=== PATIENT | male | born 1960 | race African-American/Black ===

== ENCOUNTER 2023-04-14 10:34 | Emergency (ER) | payer OTHER, SELFPAY ==
--- NOTE | ~2023-04-14 | XR_ITS ---
EXAMINATION: XR hip LT min 3V w AP pelvis DATE: 04/14/2023 11:33 INDICATION: Left hip pain. TECHNIQUE: An anteroposterior view of the pelvis and 3 views of left hip were obtained. COMPARISON: None. FINDINGS: There is lumbar levoscoliosis and severe spondylosis. No fracture. There is moderate right hip osteoarthritis. There is advanced left hip osteoarthritis with bone volume loss of the acetabulum and femoral head. IMPRESSION: 1. Advanced left hip osteoarthritis. 2. Moderate right hip osteoarthritis. Reviewed, dictated and finalized at location A. [employer]
[2023-04-14 10:47] VITALS: BP 135/81; PULSE 95; RESP 20; TEMP 36.4; O2SAT 99
[2023-04-14 11:17] VITALS: BP 120/82; PULSE 85; RESP 17; TEMP 36.5; O2SAT 97
--- NOTE | 2023-04-14 13:05 | ED.LOWEXIN ---
HPI - Extremity Injury (Lower) General Chief Complaint: Extremity Injury, Lower Stated Complaint: hip pain Time Seen by Provider: 04/14/23 12:06 History of Present Illness HPI Narrative: Patient is a 62-year-old male presenting with hip pain. Patient states that he has chronic bilateral hip pain that was so bad today that he was struggling to walk with his walker. He went to his group therapy session at [facility] and they told him to come in for evaluation because his pain was so severe. He denies new injuries, numbness or weakness, fevers or chills. No further complaints. States that he takes Tylenol and naproxen with decent pain control. Related Data Allergies Allergy/AdvReac Type Severity Reaction Status Date / Time No Known Allergies Allergy Verified 04/14/23 11:19 Review of Systems Review of Systems: All systems reviewed & are unremarkable except as noted in HPI and below Exam Narrative: GENERAL: Well-appearing, In no acute distress, pleasant cooperative HEAD: Normocephalic, atraumatic. EYES: PERRLA and EOMI. ENT: . Mucous membranes moist. NECK: Supple. CHEST: No respiratory distress. HEART: Regular rate and rhythm EXTREMITIES: Normal range of motion. No edema. no tenderness of hips, no skin changes, distal pulses 2+ SKIN: Warm, dry, no rash. NEURO: Alert and oriented x3. PSYCH: Normal mood and affect. Course Vital Signs Vital signs: Vital Signs Temperature 97.6 F 04/14/23 10:47 Pulse Rate 95 04/14/23 10:47 Respiratory Rate 20 04/14/23 10:47 Blood Pressure 135/81 04/14/23 10:47 Pulse Oximetry 99 04/14/23 10:47 Oxygen Delivery Room Air 04/14/23 10:47 Temperature 97.7 F 04/14/23 11:17 Pulse Rate 85 04/14/23 11:17 Respiratory Rate 17 04/14/23 11:17 Blood Pressure 120/82 04/14/23 11:17 Pulse Oximetry 97 04/14/23 11:17 Oxygen Delivery Room Air 04/14/23 10:47 MDM - Extremity Injury (Lower) MDM Narrative Medical decision making narrative: 62-year-old male presenting with hip pain. Vitals are stable. Exam remarkable for the above. X-ray reveals severe bilateral osteoarthritis. Patient has been taking Tylenol and naproxen with decent pain relief. States that he has seen an orthopedic physician who advised that he have a hip replacement once he stops smoking. He denies any new trauma. No numbness or weakness. Will treat with IM Toradol and a 1 time dose of Vicodin. Advised that he continue to use Tylenol and naproxen. Advised that he follow-up closely with orthopedic surgery. Appropriate return precautions given. Discharged in stable condition. Differential Diagnosis Differential diagnosis: Likely other ( Hip pain, arthritis) Medical Records Attestation: I reviewed the patient's medical records. Imaging Data Radiologist's impression: ITS Impressions Hip/Pelvis X-Ray 04/14/23 11:44 IMPRESSION: 1. Advanced left hip osteoarthritis. 2. Moderate right hip osteoarthritis. Critical Care Time Critical Care Time Critical Care Time: No Discharge Plan Discharge Clinical Impression: Hip osteoarthritis Patient Disposition: Home, Self-Care Condition: Stable Instructions: Antibiotic Form, Osteoarthritis (DC) Additional Instructions: The x-ray today shows arthritis in both of your hip joints. Please continue using Tylenol and naproxen for pain control. Please follow-up closely with orthopedic surgery. Prescriptions: New diclofenac sodium [Voltaren Arthritis Pain] 1 % gel 4 g topical QID Qty: 100 0RF Rx Instructions: apply to single knee, ankle, foot; for foot includes sole/toes/top of foot Follow-up/Referrals: Toni,Ok Dumont MD [Primary Care Provider] - Aki Blackwood MD [Physician] - Stand Alone Forms: Work/School Release IP
[2023-04-14] MEDS: KETOROLAC 30 MG/ML VIAL (*BKC) IM (13:23)
[2023-04-14] MEDS: HYDROcodone/acetaminophen (*CRX) 5-325 MG TABLET 1 TAB PO (13:24)
== END 2023-04-14 13:20 | disposition home or self-care (01) ==
PROVIDERS: Emergency Provider Emergency Medicine; PCP Internal Medicine
DX: M16.0 Bilateral primary osteoarthritis of hip (principal)
CPT/HCPCS: 73502; 96372; 99283; A9270; J1885

== ENCOUNTER 2025-01-07 22:12 | Inpatient (IN) | payer OTHER, SELFPAY ==
--- NOTE | ~2025-01-07 | CT_ITS ---
CTA CHEST CLINICAL HISTORY: sob, cp, +dimer . COMPARISON: Chest x-ray today TECHNIQUE: Helical CTA performed from thoracic inlet to upper abdomen 100 mL IV contrast Coronal, sagittal reformats. Multiplanar MIPS CT images acquired with automatic exposure control for dose reduction DLP: 269 mGy-cm FINDINGS: Pulmonary arteries: No PE. Thoracic Aorta: No dissection or aneurysm. Heart/pericardium: Unremarkable. RV/LV ratio: Normal. Lungs/Pleura: Tiny atelectasis and/or pneumonitis right upper lobe near fissure. Tracheobronchial tree: Patent. Nodes: No enlarged nodes. Bones: No acute bony abnormality. Soft tissues: Unremarkable. Visualized upper abdomen: Hepatomegaly, likely steatosis. IMPRESSION: 1. No PE or other acute cardiopulmonary findings. Reviewed, dictated and finalized at location R.
--- NOTE | ~2025-01-07 | US_ITS ---
BILATERAL LOWER EXTREMITY VENOUS DUPLEX Clinical History: pain in legs, swelling RLE . Comparison: None. Technique: Grayscale, color, duplex/spectral Doppler sonography bilateral lower extremities. Findings: Bilateral common femoral, femoral, popliteal, and calf veins compressible and color Doppler patent. Normal augmentation with distal compression. No internal echoes. IMPRESSION: 1. No DVT either leg. Reviewed, dictated and finalized at location R. IMPRESSION: 1. No DVT either leg.
--- NOTE | ~2025-01-07 | CT_ITS ---
CT HEAD NON-CONTRAST Clinical History: dizziness Comparison: None Technique: Unenhanced axial images skull base to vertex Coronal, sagittal reformats CT images acquired with automatic exposure control for dose reduction DLP: 681 mGy-cm Findings: Global atrophy. Sulci, ventricles: Unremarkable. No intracerebral hemorrhage. No evidence acute territorial infarct. No mass effect, midline shift. Bony calvarium intact. Visualized paranasal sinuses: Clear. Mastoid air cells: Clear. IMPRESSION: 1. No acute intracranial findings. Reviewed, dictated and finalized at location R.
--- NOTE | ~2025-01-07 | XR_ITS ---
Examination: XR chest 1V portable Clinical History: soB CHEST PAIN Comparison: None Technique: Portable AP Findings: Heart size normal. Lungs clear. No acute bony abnormality. IMPRESSION: 1. No acute cardiopulmonary findings given portable technique. Reviewed, dictated and finalized at location R.
[2025-01-07 22:07] VITALS: BP 109/78; PULSE 83; RESP 17; TEMP 36.6; O2SAT 99
--- NOTE | 2025-01-07 22:16 | ECG_ITS ---
Test Date: 2025-01-07 22:19:08 Measurements Intervals [place] Rate: 83 P: 70 [place]: 138 QRS: 29 QRSD: 106 T: -62 QT: 362 QTc: 427 Interpretive Statements SINUS RHYTHM NONSPECIFIC ST-T WAVE ABNORMALITY- DIFFUSE LEADS BASELINE ARTIFACT- I, II, III, AVR, AVL, AVF, V3-V4 BORDERLINE ECG No previous ECG available for comparison Electronically Signed On 01-08-2025 08:16:48 CDT by Juan Brady D.O.
[2025-01-07] MEDS: ASPIRIN 81 MG CHEWABLE TABLET 324 MG PO (22:28)
[2025-01-07 22:31] LABS: Hematocrit 34.6 % (42.0-52.0); Hemoglobin 11.8 g/dL (14.0-18.0); Immature Granulocyte Percent A 0.3 % (0-0.5); Lymphocytes Absolute Auto 1.70 K/mm3 (0.9-3.2); Mean Corpuscular HGB Conc 34.1 g/dl (32-36); Mean Corpuscular Hemoglobin 30.5 pg (26-34); Mean Corpuscular Volume 89.4 fl (80-100); Nucleated Red Blood Cells Absolute Auto 0.000 K/mm3 (0.0-0.012); Nucleated Red Blood Cells Perc 0.0 % (0.0-0.2); Platelet Count Result 221 k/mm3 (150-375); Red Blood Count 3.87 M/mm3 (4.6-6.20); White Blood Count 7.3 K/mm3 (4.5-10.0)
[2025-01-07 22:41] LABS: Alanine Aminotransferase 35 U/L (6-50); Albumin Level 3.9 g/dL (3.5-5.1); Alkaline Phosphatase 112 U/L (38-126); Anion Gap 4 mmol/L (4-12); Aspartate Amino Transferase 61 U/L (17-59); Bilirubin,Total 1.0 mg/dL (0.2-1.3); Blood Urea Nitrogen 20 mg/dL (9-20); Calcium 8.6 mg/dL (8.4-10.2); Carbon Dioxide 27 mmol/L (22-30); Chloride 103 mmol/L (98-107); Estimated CRCL calculation 58 ml/min; Estimated Glomerular Filt Rate > 60; Glucose 173 mg/dL (65-110); Lipase 173 U/L (23-300); Potassium 3.6 mmol/L (3.4-5.0); Sodium 134 mmol/L (137-145); Total Protein 6.5 g/dL (6.3-8.2)
[2025-01-07 22:45] LABS: INR 0.9; Prothrombin Time 12.1 Seconds (11.1-14.7)
[2025-01-07 22:46] LABS: Partial Thromboplastin Time 28.7 Seconds (22.3-36.8)
[2025-01-07 22:53] LABS: Troponin I 0.014 ng/mL (0.000-0.034)
[2025-01-07 23:45] LABS: Creatine Kinase 1462 U/L (55-170); Magnesium 2.5 mg/dL (1.6-2.3)
[2025-01-07] MEDS: ONDANSETRON INJ 4 MG/2 ML VIAL IV PUSH (23:46)
[2025-01-07 23:55] LABS: NT Pro B Type Natriuretic Pept 167 pg/mL (19.9-100)
[2025-01-08] VITALS (9 sets, daily range): BP systolic 100–114; BP diastolic 57–79; PULSE 69–84; RESP 16–20; TEMP 36.3–36.4; O2SAT 98–100; BMI 26.9
--- NOTE | 2025-01-08 00:05 | ED.CHESTPAIN ---
HPI - Chest Pain General Chief Complaint: Chest Pain <RATNA Cheema Last Filed: 01/08/25 01:50> Stated Complaint: CP, SOB, LOW O2, BLE EDEMA, DIZZINESS <RATNA Cheema Last Filed: 01/08/25 01:50> Time Seen by Provider: 01/07/25 23:05 <RATNA Cheema Last Filed: 01/08/25 01:50> Source: patient and old records reviewed <RATNA Cheema Last Filed: 01/08/25 01:50> Mode of arrival: EMS <RATNA Cheema Last Filed: 01/08/25 01:50> Limitations: no limitations <RATNA Cheema Last Filed: 01/08/25 01:50> History of Present Illness HPI narrative: Patient is a 64-year-old male, with PMH of bipolar disorder, tardive dyskinesia, who presents the ED via EMS with multiple complaints. Per EMS report, patient was [place] local [place] with report of chest pain, shortness breath, dizziness, nausea, vomiting. He states the symptoms started today. Patient was noted to be hypoxic for EMS down to 86% on room air. Was placed on supplemental oxygen. Patient also reports having swelling throughout his right lower extremity for the past several months. Also complains of diffuse muscle pain/generalized pain, most notably in his lower extremities/thighs. States this has been intermittent since 2020, but reports he has been walking the last few days and his sx's have worsened. Has not taken anything for pain. Denies fall or injury. Denies cough or cold symptoms. <RATNA Cheema Last Filed: 01/08/25 01:50> Related Data Home Medications: Home Medications ?Medication ?Instructions ?Recorded ?Confirmed ?Last Taken ?Type amlodipine 5 mg tablet 5 mg PO DAILY 01/08/25 01/08/25 Unknown History bupropion HCl 300 mg 24 hr tablet, 300 mg PO DAILY 01/08/25 01/08/25 Unknown History extended release cyclobenzaprine 10 mg tablet 10 mg PO DAILY 01/08/25 01/08/25 Unknown History divalproex 250 mg tablet,delayed 250 mg PO DAILY 01/08/25 01/08/25 Unknown History release divalproex 500 mg tablet,delayed 500 mg PO DAILY 01/08/25 01/08/25 Unknown History release duloxetine 30 mg capsule,delayed 30 mg PO DAILY 01/08/25 01/08/25 Unknown History release gabapentin 300 mg capsule 300 mg PO Q8H 01/08/25 01/08/25 Unknown History hydrochlorothiazide 12.5 mg tablet 12.5 mg PO DAILY 01/08/25 01/08/25 Unknown History hydroxyzine HCl 25 mg tablet 25 mg PO BID 01/08/25 01/08/25 Unknown History lurasidone 40 mg tablet 40 mg PO DAILY 01/08/25 01/08/25 Unknown History meloxicam 15 mg tablet 15 mg PO DAILY 01/08/25 01/08/25 Unknown History tamsulosin 0.4 mg capsule 0.4 mg PO HS 01/08/25 01/08/25 Unknown History trazodone 50 mg tablet 50 mg PO HS 01/08/25 01/08/25 Unknown History <Kiley Elizabeth PA-C - Last Filed: 01/08/25 01:50> Allergies/Adverse Reactions: Allergies Allergy/AdvReac Type Severity Reaction Status Date / Time No Known Allergies Allergy Verified 01/08/25 11:40 <Kiley Elizabeth PA-C - Last Filed: 01/08/25 01:50> Review of Systems Review of Systems: All systems reviewed & are unremarkable except as noted in HPI. <Kiley Elizabeth PA-C - Last Filed: 01/08/25 01:50> All systems reviewed & are unremarkable except as noted in HPI and below <Kiley Elizabeth PA-C - Last Filed: 01/08/25 01:50> [facility] Past Medical History Medical History: Medical History (Updated 01/09/25 @ 15:53 by Martine Lake PA-C) Tobacco abuse Depression Osteoarthritis Tardive dyskinesia <iKley Elizabeth PA-C - Last Filed: 01/08/25 01:50> Surgical History Surgical History: Surgical History (Updated 01/08/25 @ 06:12 by Sheeba Ragland APRN) History of back surgery H/O left knee surgery <Kiley Elizabeth PA-C - Last Filed: 01/08/25 01:50> Family History Family History: Family History (Updated 01/08/25 @ 05:57 by Sheeba Ragland APRN) Other Family history unknown <Kiley Elizabeth PA-C - Last Filed: 01/08/25 01:50> Social History Social History: Social History (Updated 01/08/25 @ 06:12 by Sheeba Ragland APRN) Social History: According to his face sheet he is and lives in [facility]. He is unemployed. He has a friend and sibling listed as his contact people. From previous records he has stayed at [facility]. From previous records he had been a smoker. Code status full code Smoking packs per day: 0.5 Smoking cigarettes per day: 10.0 Years smoked: 50 Smoking pack-years: 25.00 Smoking status: Current every day smoker Tobacco type: cigarettes Alcohol intake: current Drinks per week: 14 Substance use: current Substance use type: marijuana and crack/cocaine Lack of Transportation: YES Lack of Food: Often True Current Housing: I Do Not Have Housing Concerned About Future Housing: No Difficulty Paying Gas/Electric Bills: No Difficulty Paying for Meds: No Currently Unemployed: No Education: Bachelor's Degree Difficulty w/ Childcare or Family Care: No Spiritual care concerns: No <Kiley Elizabeth PA-C - Last Filed: 01/08/25 01:50> Exam Narrative: GENERAL: Well appearing, well-nourished, non-toxic, in no acute distress. HEAD: Normocephalic, atraumatic. RESPIRATORY: Airway patent, respirations nonlabored. Occasional expiratory wheezing, no significant rhonchi. Otherwise clear to auscultation. CARDIOVASCULAR: Regular rate and rhythm without murmurs, rubs, or gallops. ABDOMINAL: Soft, nontender, nondistended. Normoactive BS. MUSCULOSKELETAL: Moves all extremities. No gross deformities. Frequent spasming of arms and legs. SKIN: Warm, dry, normal color. NEURO: A&O X3. Speech clear. Cranial nerves II-XII grossly intact. Steady gait. No ataxic movements. PSYCHIATRIC: Somewhat rapid/pressured speech. Normal interaction. Tardive dyskinesia of mouth <Kiley Elizabeth PA-C - Last Filed: 01/08/25 01:50> Course [facility]/PA Physician Supervision PA consulted / informed me this patient was being admitted for elevated CPK. Reviewed renal function. I did not personally examine them however. <Anne Schultz MD - Last Filed: 01/09/25 19:28> Vital Signs Vital signs: Vital Signs Temperature 97.8 F 01/07/25 22:07 Pulse Rate 83 01/07/25 22:07 Respiratory Rate 17 01/07/25 22:07 Blood Pressure 109/78 01/07/25 22:07 Pulse Oximetry 99 01/07/25 22:07 Oxygen Delivery Room Air 01/07/25 22:07 Temperature 99.2 F 01/09/25 14:00 Pulse Rate 78 01/09/25 16:00 Respiratory Rate 18 01/09/25 14:00 Blood Pressure 148/89 H 01/09/25 14:00 Pulse Oximetry 100 01/09/25 14:00 Oxygen Delivery Room Air 01/09/25 08:50 <Kiley Elizabeth PA-C - Last Filed: 01/08/25 01:50> Vital Signs Temperature 97.8 F 01/07/25 22:07 Pulse Rate 83 01/07/25 22:07 Respiratory Rate 17 01/07/25 22:07 Blood Pressure 109/78 01/07/25 22:07 Pulse Oximetry 99 01/07/25 22:07 Oxygen Delivery Room Air 01/07/25 22:07 Temperature 99.2 F 01/09/25 14:00 Pulse Rate 78 01/09/25 16:00 Respiratory Rate 18 01/09/25 14:00 Blood Pressure 148/89 H 01/09/25 14:00 Pulse Oximetry 100 01/09/25 14:00 Oxygen Delivery Room Air 01/09/25 08:50 <Anne Schultz MD - Last Filed: 01/09/25 19:28> MDM - Chest Pain MDM Narrative Medical decision making narrative: Patient presented to ED with multiple complaints, chest pain, shortness breath, dizziness, nausea, vomiting, muscle pain. Vital signs are stable upon arrival. Patient was reported to be hypoxic by EMS down to 86%. Required supplemental oxygen for EMS. Patient has been stable on room air here. Not currently requiring supplemental oxygen. In no acute respiratory distress. EKG was sinus rhythm, does show nonspecific T-wave inversions scattered throughout. Baseline troponin 0.014. Will continue to trend. BNP only 167. Patient does have some swelling throughout right lower extremity, but otherwise does not appear markedly fluid overloaded. D-dimer was elevated to 0.69. CTA of chest was obtained and without evidence of PE, pneumonia, pulmonary edema. Remainder of laboratory studies without leukocytosis. Mild anemia noted with hemoglobin of 11.8, no records to compare to. Electrolytes are stable. Creatinine 1.14. Blood glucose 173. Mag within normal range. CK was notably elevated to 1462. ETOH negative. Viral swabs negative. UA/UDS ordered/pending. CT brain was without acute findings. Patient given 2 L of fluid in the ED. Will be admitted for further evaluation and continued aggressive fluid hydration. Discussed case with Sheeba Ragland [employer] hospitalist, accepted patient for admission. Patient in agreement with plan. <Kiley Elizabeth PA-C - Last Filed: 01/08/25 01:50> Medical Records Data Attestation: I reviewed the patient's medical records. <Kiley Elizabeth PA-C - Last Filed: 01/08/25 01:50> Lab Data Attestation: I reviewed the patient's lab results. <Kiley Elizabeth PA-C - Last Filed: 01/08/25 01:50> Result diagrams: 01/09/25 09:27 01/09/25 09:27 <RATNA Cheema Last Filed: 01/08/25 01:50> Labs: Lab Results 01/07/25 01/07/25 01/07/25 Range/Units 22:24 22:24 22:25 WBC 7.3 (4.5-10.0) K/mm3 RBC 3.87 L (4.6-6.20) M/mm3 Hgb 11.8 L (14.0-18.0) g/dL Hct 34.6 L (42.0-52.0) % MCV 89.4 (80-100) fl MCH 30.5 (26-34) pg MCHC 34.1 (32-36) g/dl RDW 15.0 H (11.5-14.5) % Plt Count 221 (150-375) k/mm3 MPV 9.7 (7.4-10.4) fl Immature Gran % (Auto) 0.3 (0-0.5) % Neut % (Auto) 63.2 (45.5-73.1) % Lymph % (Auto) 23.4 (18.3-44.2) % [place] % (Auto) 8.7 H (2.6-8.5) % Eos % (Auto) 3.7 (0-4.4) % Baso % (Auto) 0.7 (0.2-1.2) % Lymph # (Auto) 1.70 (0.9-3.2) K/mm3 [place] # (Auto) 0.6 (0.1-0.6) K/mm3 Eos # (Auto) 0.3 (0-0.3) K/mm3 Baso # (Auto) 0.1 (0.0-0.1) K/mm3 Abs Immat Gran (auto) 0.02 (0.00-0.031) K/mm3 Absolute Neuts (auto) 4.6 (1.3-6.7) K/mm3 Absolute Nucleated RBC 0.000 (0.0-0.012) K/mm3 Nucleated RBC % 0.0 (0.0-0.2) % PT 12.1 (11.1-14.7) Seconds INR 0.9 APTT 28.7 (22.3-36.8) Seconds D-Dimer 0.69 H (<0.48) ug/mL Sodium 134 L (137-145) mmol/L Potassium 3.6 (3.4-5.0) mmol/L Chloride 103 (98-107) mmol/L Carbon Dioxide 27 (22-30) mmol/L Anion Gap 4 (4-12) mmol/L BUN 20 (9-20) mg/dL Creatinine 1.14 (0.7-1.3) mg/dL Estim Creat Clear Calc 58 ml/min Estimated GFR > 60 (59 - ) Glucose 173 H (65-110) mg/dL POC Capillary Glucose (65-105) mg/dl Calcium 8.6 (8.4-10.2) mg/dL Magnesium 2.5 H (1.6-2.3) mg/dL Total Bilirubin 1.0 (0.2-1.3) mg/dL AST 61 H (17-59) U/L ALT 35 (6-50) U/L Alkaline Phosphatase 112 (38-126) U/L Total Creatine Kinase 1462 H (55-170) U/L Troponin I 0.014 (0.000-0.034) ng/mL NT-Pro-B Natriuret Pep 167 H Cancelled (19.9-100) pg/mL Total Protein 6.5 (6.3-8.2) g/dL Albumin 3.9 (3.5-5.1) g/dL Lipase 173 (23-300) U/L Urine Color (Yellow) Urine Appearance (Clear) Urine pH (5.0-9.0) Ur Specific [place] (1.001-1.035) Urine Protein (Negative) mg/dL Urine Glucose (UA) (Negative) mg/dL Urine Ketones (Negative) mg/dL Ur Blood (Man) (Negative) Urine Nitrate (Negative) Urine Bilirubin (Negative) Urine Urobilinogen (<2.0) mg/dL Leukocyte Esterase Rfl (Negative) DEDRICK/UL Urine RBC (0-2) /hpf Urine WBC (0-3) /hpf Ur Squamous Epith Cells (Few) /hpf Urine Bacteria /hpf Urine Casts Urine Myoglobin Urine Opiates Screen (Negative) Urine Methadone Screen (Negative) Ur Barbiturates Screen (Negative) Ur Phencyclidine Scrn (Negative) Ur Amphetamine Screen (Negative) U Benzodiazepines Scrn (Negative) Urine Cocaine Screen (Negative) U Cannabinoids Screen (Negative) Ethyl Alcohol (<10) mg/dL Influenza A (RT-PCR) (Negative) Influenza B (RT-PCR) (Negative) RSV (RT-PCR) (Negative) SARS-CoV-2 RNA (RT-PCR) (Negative) 01/08/25 01/08/25 01/08/25 Range/Units 00:12 01:30 01:40 WBC (4.5-10.0) K/mm3 RBC (4.6-6.20) M/mm3 Hgb (14.0-18.0) g/dL Hct (42.0-52.0) % MCV (80-100) fl MCH (26-34) pg MCHC (32-36) g/dl RDW (11.5-14.5) % Plt Count (150-375) k/mm3 MPV (7.4-10.4) fl Immature Gran % (Auto) (0-0.5) % Neut % (Auto) (45.5-73.1) % Lymph % (Auto) (18.3-44.2) % [place] % (Auto) (2.6-8.5) % Eos % (Auto) (0-4.4) % Baso % (Auto) (0.2-1.2) % Lymph # (Auto) (0.9-3.2) K/mm3 [place] # (Auto) (0.1-0.6) K/mm3 Eos # (Auto) (0-0.3) K/mm3 Baso # (Auto) (0.0-0.1) K/mm3 Abs Immat Gran (auto) (0.00-0.031) K/mm3 Absolute Neuts (auto) (1.3-6.7) K/mm3 Absolute Nucleated RBC (0.0-0.012) K/mm3 Nucleated RBC % (0.0-0.2) % PT (11.1-14.7) Seconds INR APTT (22.3-36.8) Seconds D-Dimer (<0.48) ug/mL Sodium (137-145) mmol/L Potassium (3.4-5.0) mmol/L Chloride (98-107) mmol/L Carbon Dioxide (22-30) mmol/L Anion Gap (4-12) mmol/L BUN (9-20) mg/dL Creatinine (0.7-1.3) mg/dL Estim Creat Clear Calc ml/min Estimated GFR (59 - ) Glucose (65-110) mg/dL POC Capillary Glucose (65-105) mg/dl Calcium (8.4-10.2) mg/dL Magnesium (1.6-2.3) mg/dL Total Bilirubin (0.2-1.3) mg/dL AST (17-59) U/L ALT (6-50) U/L Alkaline Phosphatase (38-126) U/L Total Creatine Kinase (55-170) U/L Troponin I 0.014 (0.000-0.034) ng/mL NT-Pro-B Natriuret Pep (19.9-100) pg/mL Total Protein (6.3-8.2) g/dL Albumin (3.5-5.1) g/dL Lipase (23-300) U/L Urine Color (Yellow) Urine Appearance (Clear) Urine pH (5.0-9.0) Ur Specific [place] (1.001-1.035) Urine Protein (Negative) mg/dL Urine Glucose (UA) (Negative) mg/dL Urine Ketones (Negative) mg/dL Ur Blood (Man) (Negative) Urine Nitrate (Negative) Urine Bilirubin (Negative) Urine Urobilinogen (<2.0) mg/dL Leukocyte Esterase Rfl (Negative) DEDRICK/UL Urine RBC (0-2) /hpf Urine WBC (0-3) /hpf Ur Squamous Epith Cells (Few) /hpf Urine Bacteria /hpf Urine Casts Urine Myoglobin Urine Opiates Screen Negative (Negative) Urine Methadone Screen Negative (Negative) Ur Barbiturates Screen Negative (Negative) Ur Phencyclidine Scrn Negative (Negative) Ur Amphetamine Screen Positive A (Negative) U Benzodiazepines Scrn Negative (Negative) Urine Cocaine Screen Positive A (Negative) U Cannabinoids Screen Positive A (Negative) Ethyl Alcohol (<10) mg/dL Influenza A (RT-PCR) Negative (Negative) Influenza B (RT-PCR) Negative (Negative) RSV (RT-PCR) Negative (Negative) SARS-CoV-2 RNA (RT-PCR) Negative (Negative) 01/08/25 01/08/25 01/08/25 Range/Units 02:42 03:10 05:53 WBC 4.9 (4.5-10.0) K/mm3 RBC 3.65 L (4.6-6.20) M/mm3 Hgb 11.3 L (14.0-18.0) g/dL Hct 32.7 L (42.0-52.0) % MCV 89.6 (80-100) fl MCH 31.0 (26-34) pg MCHC 34.6 (32-36) g/dl RDW 14.7 H (11.5-14.5) % Plt Count 194 (150-375) k/mm3 MPV 9.9 (7.4-10.4) fl Immature Gran % (Auto) (0-0.5) % Neut % (Auto) (45.5-73.1) % Lymph % (Auto) (18.3-44.2) % [place] % (Auto) (2.6-8.5) % Eos % (Auto) (0-4.4) % Baso % (Auto) (0.2-1.2) % Lymph # (Auto) (0.9-3.2) K/mm3 [place] # (Auto) (0.1-0.6) K/mm3 Eos # (Auto) (0-0.3) K/mm3 Baso # (Auto) (0.0-0.1) K/mm3 Abs Immat Gran (auto) (0.00-0.031) K/mm3 Absolute Neuts (auto) (1.3-6.7) K/mm3 Absolute Nucleated RBC (0.0-0.012) K/mm3 Nucleated RBC % (0.0-0.2) % PT (11.1-14.7) Seconds INR APTT (22.3-36.8) Seconds D-Dimer (<0.48) ug/mL Sodium 137 (137-145) mmol/L Potassium 3.7 (3.4-5.0) mmol/L Chloride 108 H (98-107) mmol/L Carbon Dioxide 27 (22-30) mmol/L Anion Gap 2 L (4-12) mmol/L BUN 17 (9-20) mg/dL Creatinine 0.99 (0.7-1.3) mg/dL Estim Creat Clear Calc 67 ml/min Estimated GFR > 60 (59 - ) Glucose 98 (65-110) mg/dL POC Capillary Glucose 93 (65-105) mg/dl Calcium 7.9 L (8.4-10.2) mg/dL Magnesium (1.6-2.3) mg/dL Total Bilirubin (0.2-1.3) mg/dL AST (17-59) U/L ALT (6-50) U/L Alkaline Phosphatase (38-126) U/L Total Creatine Kinase 1167 H (55-170) U/L Troponin I 0.012 (0.000-0.034) ng/mL NT-Pro-B Natriuret Pep (19.9-100) pg/mL Total Protein (6.3-8.2) g/dL Albumin (3.5-5.1) g/dL Lipase (23-300) U/L Urine Color Yellow (Yellow) Urine Appearance Clear (Clear) Urine pH 5.5 (5.0-9.0) Ur Specific [place] 1.037 H (1.001-1.035) Urine Protein Trace (Negative) mg/dL Urine Glucose (UA) Negative (Negative) mg/dL Urine Ketones Trace H (Negative) mg/dL Ur Blood (Man) Negative (Negative) Urine Nitrate Negative (Negative) Urine Bilirubin Negative (Negative) Urine Urobilinogen 1.0 (<2.0) mg/dL Leukocyte Esterase Rfl Negative (Negative) DEDRICK/UL Urine RBC 0-2 (0-2) /hpf Urine WBC 0-5 (0-3) /hpf Ur Squamous Epith Cells None seen (Few) /hpf Urine Bacteria None seen /hpf Urine Casts 3-5 Urine Myoglobin Urine Opiates Screen (Negative) Urine Methadone Screen (Negative) Ur Barbiturates Screen (Negative) Ur Phencyclidine Scrn (Negative) Ur Amphetamine Screen (Negative) U Benzodiazepines Scrn (Negative) Urine Cocaine Screen (Negative) U Cannabinoids Screen (Negative) Ethyl Alcohol (<10) mg/dL Influenza A (RT-PCR) (Negative) Influenza B (RT-PCR) (Negative) RSV (RT-PCR) (Negative) SARS-CoV-2 RNA (RT-PCR) (Negative) 01/08/25 01/08/25 01/09/25 Range/Units 11:01 22:24 09:27 WBC 4.6 (4.5-10.0) K/mm3 RBC 3.84 L (4.6-6.20) M/mm3 Hgb 11.9 L (14.0-18.0) g/dL Hct 34.6 L (42.0-52.0) % MCV 90.1 (80-100) fl MCH 31.0 (26-34) pg MCHC 34.4 (32-36) g/dl RDW 14.9 H (11.5-14.5) % Plt Count 195 (150-375) k/mm3 MPV 9.9 (7.4-10.4) fl Immature Gran % (Auto) (0-0.5) % Neut % (Auto) (45.5-73.1) % Lymph % (Auto) (18.3-44.2) % [place] % (Auto) (2.6-8.5) % Eos % (Auto) (0-4.4) % Baso % (Auto) (0.2-1.2) % Lymph # (Auto) (0.9-3.2) K/mm3 [place] # (Auto) (0.1-0.6) K/mm3 Eos # (Auto) (0-0.3) K/mm3 Baso # (Auto) (0.0-0.1) K/mm3 Abs Immat Gran (auto) (0.00-0.031) K/mm3 Absolute Neuts (auto) (1.3-6.7) K/mm3 Absolute Nucleated RBC (0.0-0.012) K/mm3 Nucleated RBC % (0.0-0.2) % PT (11.1-14.7) Seconds INR APTT (22.3-36.8) Seconds D-Dimer Cancelled (<0.48) ug/mL Sodium 136 L (137-145) mmol/L Potassium 3.4 (3.4-5.0) mmol/L Chloride 104 (98-107) mmol/L Carbon Dioxide 26 (22-30) mmol/L Anion Gap 6 (4-12) mmol/L BUN 9 D (9-20) mg/dL Creatinine 0.84 (0.7-1.3) mg/dL Estim Creat Clear Calc 70 ml/min Estimated GFR > 60 (59 - ) Glucose 150 H (65-110) mg/dL POC Capillary Glucose (65-105) mg/dl Calcium 8.4 (8.4-10.2) mg/dL Magnesium (1.6-2.3) mg/dL Total Bilirubin 0.6 (0.2-1.3) mg/dL AST 49 (17-59) U/L ALT 32 (6-50) U/L Alkaline Phosphatase 100 (38-126) U/L Total Creatine Kinase 960 H (55-170) U/L Troponin I (0.000-0.034) ng/mL NT-Pro-B Natriuret Pep (19.9-100) pg/mL Total Protein 6.1 L (6.3-8.2) g/dL Albumin 3.5 (3.5-5.1) g/dL Lipase (23-300) U/L Urine Color (Yellow) Urine Appearance (Clear) Urine pH (5.0-9.0) Ur Specific [place] (1.001-1.035) Urine Protein (Negative) mg/dL Urine Glucose (UA) (Negative) mg/dL Urine Ketones (Negative) mg/dL Ur Blood (Man) (Negative) Urine Nitrate (Negative) Urine Bilirubin (Negative) Urine Urobilinogen (<2.0) mg/dL Leukocyte Esterase Rfl (Negative) DEDRICK/UL Urine RBC (0-2) /hpf Urine WBC (0-3) /hpf Ur Squamous Epith Cells (Few) /hpf Urine Bacteria /hpf Urine Casts Urine Myoglobin Pending Urine Opiates Screen (Negative) Urine Methadone Screen (Negative) Ur Barbiturates Screen (Negative) Ur Phencyclidine Scrn (Negative) Ur Amphetamine Screen (Negative) U Benzodiazepines Scrn (Negative) Urine Cocaine Screen (Negative) U Cannabinoids Screen (Negative) Ethyl Alcohol < 10 (<10) mg/dL Influenza A (RT-PCR) (Negative) Influenza B (RT-PCR) (Negative) RSV (RT-PCR) (Negative) SARS-CoV-2 RNA (RT-PCR) (Negative) <Kiley Elizabeth PA-C - Last Filed: 01/08/25 01:50> Lab Results 01/07/25 01/07/25 01/07/25 Range/Units 22:24 22:24 22:25 WBC 7.3 (4.5-10.0) K/mm3 RBC 3.87 L (4.6-6.20) M/mm3 Hgb 11.8 L (14.0-18.0) g/dL Hct 34.6 L (42.0-52.0) % MCV 89.4 (80-100) fl MCH 30.5 (26-34) pg MCHC 34.1 (32-36) g/dl RDW 15.0 H (11.5-14.5) % Plt Count 221 (150-375) k/mm3 MPV 9.7 (7.4-10.4) fl Immature Gran % (Auto) 0.3 (0-0.5) % Neut % (Auto) 63.2 (45.5-73.1) % Lymph % (Auto) 23.4 (18.3-44.2) % [place] % (Auto) 8.7 H (2.6-8.5) % Eos % (Auto) 3.7 (0-4.4) % Baso % (Auto) 0.7 (0.2-1.2) % Lymph # (Auto) 1.70 (0.9-3.2) K/mm3 [place] # (Auto) 0.6 (0.1-0.6) K/mm3 Eos # (Auto) 0.3 (0-0.3) K/mm3 Baso # (Auto) 0.1 (0.0-0.1) K/mm3 Abs Immat Gran (auto) 0.02 (0.00-0.031) K/mm3 Absolute Neuts (auto) 4.6 (1.3-6.7) K/mm3 Absolute Nucleated RBC 0.000 (0.0-0.012) K/mm3 Nucleated RBC % 0.0 (0.0-0.2) % PT 12.1 (11.1-14.7) Seconds INR 0.9 APTT 28.7 (22.3-36.8) Seconds D-Dimer 0.69 H (<0.48) ug/mL Sodium 134 L (137-145) mmol/L Potassium 3.6 (3.4-5.0) mmol/L Chloride 103 (98-107) mmol/L Carbon Dioxide 27 (22-30) mmol/L Anion Gap 4 (4-12) mmol/L BUN 20 (9-20) mg/dL Creatinine 1.14 (0.7-1.3) mg/dL Estim Creat Clear Calc 58 ml/min Estimated GFR > 60 (59 - ) Glucose 173 H (65-110) mg/dL POC Capillary Glucose (65-105) mg/dl Calcium 8.6 (8.4-10.2) mg/dL Magnesium 2.5 H (1.6-2.3) mg/dL Total Bilirubin 1.0 (0.2-1.3) mg/dL AST 61 H (17-59) U/L ALT 35 (6-50) U/L Alkaline Phosphatase 112 (38-126) U/L Total Creatine Kinase 1462 H (55-170) U/L Troponin I 0.014 (0.000-0.034) ng/mL NT-Pro-B Natriuret Pep 167 H Cancelled (19.9-100) pg/mL Total Protein 6.5 (6.3-8.2) g/dL Albumin 3.9 (3.5-5.1) g/dL Lipase 173 (23-300) U/L Urine Color (Yellow) Urine Appearance (Clear) Urine pH (5.0-9.0) Ur Specific [place] (1.001-1.035) Urine Protein (Negative) mg/dL Urine Glucose (UA) (Negative) mg/dL Urine Ketones (Negative) mg/dL Ur Blood (Man) (Negative) Urine Nitrate (Negative) Urine Bilirubin (Negative) Urine Urobilinogen (<2.0) mg/dL Leukocyte Esterase Rfl (Negative) DEDRICK/UL Urine RBC (0-2) /hpf Urine WBC (0-3) /hpf Ur Squamous Epith Cells (Few) /hpf Urine Bacteria /hpf Urine Casts Urine Myoglobin Urine Opiates Screen (Negative) Urine Methadone Screen (Negative) Ur Barbiturates Screen (Negative) Ur Phencyclidine Scrn (Negative) Ur Amphetamine Screen (Negative) U Benzodiazepines Scrn (Negative) Urine Cocaine Screen (Negative) U Cannabinoids Screen (Negative) Ethyl Alcohol (<10) mg/dL Influenza A (RT-PCR) (Negative) Influenza B (RT-PCR) (Negative) RSV (RT-PCR) (Negative) SARS-CoV-2 RNA (RT-PCR) (Negative) 01/08/25 01/08/25 01/08/25 Range/Units 00:12 01:30 01:40 WBC (4.5-10.0) K/mm3 RBC (4.6-6.20) M/mm3 Hgb (14.0-18.0) g/dL Hct (42.0-52.0) % MCV (80-100) fl MCH (26-34) pg MCHC (32-36) g/dl RDW (11.5-14.5) % Plt Count (150-375) k/mm3 MPV (7.4-10.4) fl Immature Gran % (Auto) (0-0.5) % Neut % (Auto) (45.5-73.1) % Lymph % (Auto) (18.3-44.2) % [place] % (Auto) (2.6-8.5) % Eos % (Auto) (0-4.4) % Baso % (Auto) (0.2-1.2) % Lymph # (Auto) (0.9-3.2) K/mm3 [place] # (Auto) (0.1-0.6) K/mm3 Eos # (Auto) (0-0.3) K/mm3 Baso # (Auto) (0.0-0.1) K/mm3 Abs Immat Gran (auto) (0.00-0.031) K/mm3 Absolute Neuts (auto) (1.3-6.7) K/mm3 Absolute Nucleated RBC (0.0-0.012) K/mm3 Nucleated RBC % (0.0-0.2) % PT (11.1-14.7) Seconds INR APTT (22.3-36.8) Seconds D-Dimer (<0.48) ug/mL Sodium (137-145) mmol/L Potassium (3.4-5.0) mmol/L Chloride (98-107) mmol/L Carbon Dioxide (22-30) mmol/L Anion Gap (4-12) mmol/L BUN (9-20) mg/dL Creatinine (0.7-1.3) mg/dL Estim Creat Clear Calc ml/min Estimated GFR (59 - ) Glucose (65-110) mg/dL POC Capillary Glucose (65-105) mg/dl Calcium (8.4-10.2) mg/dL Magnesium (1.6-2.3) mg/dL Total Bilirubin (0.2-1.3) mg/dL AST (17-59) U/L ALT (6-50) U/L Alkaline Phosphatase (38-126) U/L Total Creatine Kinase (55-170) U/L Troponin I 0.014 (0.000-0.034) ng/mL NT-Pro-B Natriuret Pep (19.9-100) pg/mL Total Protein (6.3-8.2) g/dL Albumin (3.5-5.1) g/dL Lipase (23-300) U/L Urine Color (Yellow) Urine Appearance (Clear) Urine pH (5.0-9.0) Ur Specific [place] (1.001-1.035) Urine Protein (Negative) mg/dL Urine Glucose (UA) (Negative) mg/dL Urine Ketones (Negative) mg/dL Ur Blood (Man) (Negative) Urine Nitrate (Negative) Urine Bilirubin (Negative) Urine Urobilinogen (<2.0) mg/dL Leukocyte Esterase Rfl (Negative) DEDRICK/UL Urine RBC (0-2) /hpf Urine WBC (0-3) /hpf Ur Squamous Epith Cells (Few) /hpf Urine Bacteria /hpf Urine Casts Urine Myoglobin Urine Opiates Screen Negative (Negative) Urine Methadone Screen Negative (Negative) Ur Barbiturates Screen Negative (Negative) Ur Phencyclidine Scrn Negative (Negative) Ur Amphetamine Screen Positive A (Negative) U Benzodiazepines Scrn Negative (Negative) Urine Cocaine Screen Positive A (Negative) U Cannabinoids Screen Positive A (Negative) Ethyl Alcohol (<10) mg/dL Influenza A (RT-PCR) Negative (Negative) Influenza B (RT-PCR) Negative (Negative) RSV (RT-PCR) Negative (Negative) SARS-CoV-2 RNA (RT-PCR) Negative (Negative) 01/08/25 01/08/25 01/08/25 Range/Units 02:42 03:10 05:53 WBC 4.9 (4.5-10.0) K/mm3 RBC 3.65 L (4.6-6.20) M/mm3 Hgb 11.3 L (14.0-18.0) g/dL Hct 32.7 L (42.0-52.0) % MCV 89.6 (80-100) fl MCH 31.0 (26-34) pg MCHC 34.6 (32-36) g/dl RDW 14.7 H (11.5-14.5) % Plt Count 194 (150-375) k/mm3 MPV 9.9 (7.4-10.4) fl Immature Gran % (Auto) (0-0.5) % Neut % (Auto) (45.5-73.1) % Lymph % (Auto) (18.3-44.2) % [place] % (Auto) (2.6-8.5) % Eos % (Auto) (0-4.4) % Baso % (Auto) (0.2-1.2) % Lymph # (Auto) (0.9-3.2) K/mm3 [place] # (Auto) (0.1-0.6) K/mm3 Eos # (Auto) (0-0.3) K/mm3 Baso # (Auto) (0.0-0.1) K/mm3 Abs Immat Gran (auto) (0.00-0.031) K/mm3 Absolute Neuts (auto) (1.3-6.7) K/mm3 Absolute Nucleated RBC (0.0-0.012) K/mm3 Nucleated RBC % (0.0-0.2) % PT (11.1-14.7) Seconds INR APTT (22.3-36.8) Seconds D-Dimer (<0.48) ug/mL Sodium 137 (137-145) mmol/L Potassium 3.7 (3.4-5.0) mmol/L Chloride 108 H (98-107) mmol/L Carbon Dioxide 27 (22-30) mmol/L Anion Gap 2 L (4-12) mmol/L BUN 17 (9-20) mg/dL Creatinine 0.99 (0.7-1.3) mg/dL Estim Creat Clear Calc 67 ml/min Estimated GFR > 60 (59 - ) Glucose 98 (65-110) mg/dL POC Capillary Glucose 93 (65-105) mg/dl Calcium 7.9 L (8.4-10.2) mg/dL Magnesium (1.6-2.3) mg/dL Total Bilirubin (0.2-1.3) mg/dL AST (17-59) U/L ALT (6-50) U/L Alkaline Phosphatase (38-126) U/L Total Creatine Kinase 1167 H (55-170) U/L Troponin I 0.012 (0.000-0.034) ng/mL NT-Pro-B Natriuret Pep (19.9-100) pg/mL Total Protein (6.3-8.2) g/dL Albumin (3.5-5.1) g/dL Lipase (23-300) U/L Urine Color Yellow (Yellow) Urine Appearance Clear (Clear) Urine pH 5.5 (5.0-9.0) Ur Specific [place] 1.037 H (1.001-1.035) Urine Protein Trace (Negative) mg/dL Urine Glucose (UA) Negative (Negative) mg/dL Urine Ketones Trace H (Negative) mg/dL Ur Blood (Man) Negative (Negative) Urine Nitrate Negative (Negative) Urine Bilirubin Negative (Negative) Urine Urobilinogen 1.0 (<2.0) mg/dL Leukocyte Esterase Rfl Negative (Negative) DEDRICK/UL Urine RBC 0-2 (0-2) /hpf Urine WBC 0-5 (0-3) /hpf Ur Squamous Epith Cells None seen (Few) /hpf Urine Bacteria None seen /hpf Urine Casts 3-5 Urine Myoglobin Urine Opiates Screen (Negative) Urine Methadone Screen (Negative) Ur Barbiturates Screen (Negative) Ur Phencyclidine Scrn (Negative) Ur Amphetamine Screen (Negative) U Benzodiazepines Scrn (Negative) Urine Cocaine Screen (Negative) U Cannabinoids Screen (Negative) Ethyl Alcohol (<10) mg/dL Influenza A (RT-PCR) (Negative) Influenza B (RT-PCR) (Negative) RSV (RT-PCR) (Negative) SARS-CoV-2 RNA (RT-PCR) (Negative) 01/08/25 01/08/25 01/09/25 Range/Units 11:01 22:24 09:27 WBC 4.6 (4.5-10.0) K/mm3 RBC 3.84 L (4.6-6.20) M/mm3 Hgb 11.9 L (14.0-18.0) g/dL Hct 34.6 L (42.0-52.0) % MCV 90.1 (80-100) fl MCH 31.0 (26-34) pg MCHC 34.4 (32-36) g/dl RDW 14.9 H (11.5-14.5) % Plt Count 195 (150-375) k/mm3 MPV 9.9 (7.4-10.4) fl Immature Gran % (Auto) (0-0.5) % Neut % (Auto) (45.5-73.1) % Lymph % (Auto) (18.3-44.2) % [place] % (Auto) (2.6-8.5) % Eos % (Auto) (0-4.4) % Baso % (Auto) (0.2-1.2) % Lymph # (Auto) (0.9-3.2) K/mm3 [place] # (Auto) (0.1-0.6) K/mm3 Eos # (Auto) (0-0.3) K/mm3 Baso # (Auto) (0.0-0.1) K/mm3 Abs Immat Gran (auto) (0.00-0.031) K/mm3 Absolute Neuts (auto) (1.3-6.7) K/mm3 Absolute Nucleated RBC (0.0-0.012) K/mm3 Nucleated RBC % (0.0-0.2) % PT (11.1-14.7) Seconds INR APTT (22.3-36.8) Seconds D-Dimer Cancelled (<0.48) ug/mL Sodium 136 L (137-145) mmol/L Potassium 3.4 (3.4-5.0) mmol/L Chloride 104 (98-107) mmol/L Carbon Dioxide 26 (22-30) mmol/L Anion Gap 6 (4-12) mmol/L BUN 9 D (9-20) mg/dL Creatinine 0.84 (0.7-1.3) mg/dL Estim Creat Clear Calc 70 ml/min Estimated GFR > 60 (59 - ) Glucose 150 H (65-110) mg/dL POC Capillary Glucose (65-105) mg/dl Calcium 8.4 (8.4-10.2) mg/dL Magnesium (1.6-2.3) mg/dL Total Bilirubin 0.6 (0.2-1.3) mg/dL AST 49 (17-59) U/L ALT 32 (6-50) U/L Alkaline Phosphatase 100 (38-126) U/L Total Creatine Kinase 960 H (55-170) U/L Troponin I (0.000-0.034) ng/mL NT-Pro-B Natriuret Pep (19.9-100) pg/mL Total Protein 6.1 L (6.3-8.2) g/dL Albumin 3.5 (3.5-5.1) g/dL Lipase (23-300) U/L Urine Color (Yellow) Urine Appearance (Clear) Urine pH (5.0-9.0) Ur Specific [place] (1.001-1.035) Urine Protein (Negative) mg/dL Urine Glucose (UA) (Negative) mg/dL Urine Ketones (Negative) mg/dL Ur Blood (Man) (Negative) Urine Nitrate (Negative) Urine Bilirubin (Negative) Urine Urobilinogen (<2.0) mg/dL Leukocyte Esterase Rfl (Negative) DEDRICK/UL Urine RBC (0-2) /hpf Urine WBC (0-3) /hpf Ur Squamous Epith Cells (Few) /hpf Urine Bacteria /hpf Urine Casts Urine Myoglobin Pending Urine Opiates Screen (Negative) Urine Methadone Screen (Negative) Ur Barbiturates Screen (Negative) Ur Phencyclidine Scrn (Negative) Ur Amphetamine Screen (Negative) U Benzodiazepines Scrn (Negative) Urine Cocaine Screen (Negative) U Cannabinoids Screen (Negative) Ethyl Alcohol < 10 (<10) mg/dL Influenza A (RT-PCR) (Negative) Influenza B (RT-PCR) (Negative) RSV (RT-PCR) (Negative) SARS-CoV-2 RNA (RT-PCR) (Negative) <Anne Schultz MD - Last Filed: 01/09/25 19:28> Imaging Data Attestation: I personally reviewed and interpreted this imaging study as follows: <Kiley Elizabeth PA-C - Last Filed: 01/08/25 01:50> Radiologist's impression: STAT RAD CT brain: No acute intracranial hemorrhage. No midline shift or mass effect. The territory reilly-white matter differentiation is maintained throughout. Age-related cerebral volume loss. Periventricular and subcortical white matter hypoattenuation, consistent with chronic microangiopathy. STAT RAD CTA Chest: Impression: No acute pulmonary embolism. <Kiley Elizabeth PA-C - Last Filed: 01/08/25 01:50> ECG Data EKG #1: Attestation: I personally reviewed and interpreted this ECG as follows: <Kiley Elizabeth PA-C - Last Filed: 01/08/25 01:50> ECG completion date: 01/07/25 <Kiley Elizabeth PA-C - Last Filed: 01/08/25 01:50> ECG completion time: 22:19 <RATNA Cheema Last Filed: 01/08/25 01:50> EKG Interpretation: normal rate (83), sinus rhythm and non-specific ST changes <RATNA Cheema Last Filed: 01/08/25 01:50> Discharge Plan Discharge Clinical Impression: Muscle pain Rhabdomyolysis Qualifiers: Rhabdomyolysis type: non-traumatic Qualified Code(s): M62.82 - Rhabdomyolysis Chest pain Qualifiers: Chest pain type: unspecified Qualified Code(s): R07.9 - Chest pain, unspecified <RATNA Cheema Last Filed: 01/08/25 01:50> Patient Disposition: Still a Patient <RATNA Cheema Last Filed: 01/08/25 01:50> Condition: Stable <RATNA Cheema Last Filed: 01/08/25 01:50>
[2025-01-08] MEDS: SODIUM CHLORIDE 0.9% IV 1,000 ML 999 ML IV CONT ×2 (00:38→00:39)
[2025-01-08 01:03] LABS: Influenza A QL RT-PCR Negative (Negative); Influenza B QL RT-PCR Negative (Negative); RSV RNA, RT-PCR Negative (Negative); SARS-CoV-2 RNA PCR Negative (Negative)
--- NOTE | 2025-01-08 01:34 | ECG_ITS ---
Test Date: 2025-01-08 01:24:16 Measurements Intervals [place] Rate: 65 P: 77 MT: 133 QRS: 32 QRSD: 91 T: 87 QT: 433 QTc: 452 Interpretive Statements SINUS RHYTHM NONSPECIFIC ST-T WAVE ABNORMALITY- DIFFUSE LEADS BORDERLINE ECG Compared to ECG 01/07/2025 22:19:08 NO SIGNIFICANT CHANGE Electronically Signed On 01-08-2025 08:36:49 CDT by Juan Brady D.O.
[2025-01-08 02:27] LABS: Troponin I 0.014 ng/mL (0.000-0.034)
[2025-01-08] MEDS: SODIUM CHLORIDE 0.9% IV 1,000 ML 125 ML IV CONT ×3 (02:47→21:04)
[2025-01-08 03:24] LABS: Add Urine Microscopic? YES; Appearance Urine Clear (Clear); Glucose Urine UA Negative (Negative); Leukocyte Esterase Ur Negative LEU/UL (Negative); Nitrate Urine Negative (Negative); Specific Grav Ur 1.037 (1.001-1.035)
--- NOTE | 2025-01-08 03:59 | ADMGEN ---
This patient, Mara Boone, was admitted to 3 [facility] Room 309-01. Patient/family oriented to hospital policies and general routines including ID bracelet, bed and alarms, visiting hours, pain management, procedures, bathroom and other care routines, personal items, smoking policy, room service/diet, and visiting hours. Information on how to activate the Rapid Response Team has been discussed. Patient/Family are encouraged to report perceived risks to care and to ask questions if they do not understand what they are told or what they should do.
--- NOTE | 2025-01-08 04:35 | PC.NURSE ---
Addendum entered by Loyd Anderson RN 01/08/25 04:54: Patient is oriented to self and location, could not recall any medical or health history to complete admission assessment. Notified next of kinStephanie contact information provided on contact list to help with admission process. Call went to [email or web address], left message to call hospital at earliest connivence. Original Note: Notified next of kinStephanie on contact list to help with admission information. Call went to [employer], left message to call hospital at earliest convenience.
--- NOTE | 2025-01-08 05:31 | PM.IMHP ---
H&P: HPI History of Present Illness Date/Time: 01/08/25 05:31 Chief Complaint: Chest pain Narrative: This is a 64-year-old male patient who is a very poor historian. It is reported that the patient has a history of bipolar disorder and tardive dyskinesia. The patient stated that he did a lot a walking today. He said he walked until he could not walk anymore. He stated he walked through [place] today got tired. EMS picked him up from a local gas station when he had complaints of shortness of breath, chest pain, dizziness, vomiting and nausea. He stated the symptoms started the day that he was brought into the emergency room. He also stated that he was having edema to his lower extremities. The patient was hypoxic when EMS picked him up his O2 sats were 86% on room air. EMS placed supplemental oxygen on him. The patient stated that his pain is getting worse with walking. He is afebrile and oxygen levels are 97- 100% on room air in the emergency room. He is afebrile. Blood pressure 109/78. H&H 11.8 and 34.6. His D-dimer was elevated 0.69 and sodium was 134. His blood sugar was 173. Magnesium was high at 2.5. His total creatinine kinase was 1462. BNP 167. Urine had trace ketones. Alcohol level less than 10 and toxicology screen is pending. Viral serology is negative. EKG was read as sinus rhythm nonspecific T-wave abnormalities. Troponins are negative. CTA of chest was obtained and without evidence of PE, pneumonia, pulmonary edema. The patient was given Zofran and normal saline in the emergency room. The patient is a very poor historian. The patient is being admitted to observation status on the date of service of 01/08/2025. Review of Systems Constitutional: Constitutional: Reports as per HPI and Reports no additional constitutional complaints Eyes: Eyes: Reports as per HPI and Reports no additional eye complaints ENT: Reports system reviewed and no additional complaints, except as documented and Reports Normal hearing present Cardiovascular: Cardiovascular: Reports no additional cardiovascular complaints Respiratory: Respiratory: Reports as per HPI and Reports no additional respiratory complaints Gastrointestinal: Gastrointestinal: Reports as per HPI and Reports no additional gastrointestinal complaints Musculoskeletal: Musculoskeletal: Reports no additional musculoskeletal complaints Integumentary/Breasts: Skin/Breast: Reports system reviewed and no additional complaints, except as docu Neurologic: Reports system reviewed and no additional complaints, except as documented and Reports Normal hearing present Psychiatric: Psychiatric: Reports no additional psychiatric complaints and Reports as per HPI Hematologic/Lymphatic: Hematologic/Lymphatic: Reports no additional hematologic/lymphatic complaints Allergic/Immunologic: Allergic/Immunologic: Reports no additional allergic/immunologic complaints [facility] Past Medical History Medical History (Updated 01/08/25 @ 13:38 by Martine Lake PA-C) Tobacco abuse Depression Osteoarthritis Tardive dyskinesia Surgical History Surgical History (Updated 01/08/25 @ 06:12 by Sheeba Ragland APRN) History of back surgery H/O left knee surgery Family History Family History (Updated 01/08/25 @ 05:57 by Sheeba Ragland APRN) Other Family history unknown Social History Social History (Updated 01/08/25 @ 06:12 by Sheeba Ragland APRN) Social History: According to his face sheet he is and lives in [facility]. He is unemployed. He has a friend and sibling listed as his contact people. From previous records [facility] has stayed [facility]. From previous records he had been a smoker. Code status full code Smoking packs per day: 0.5 Smoking cigarettes per day: 10.0 Years smoked: 50 Smoking pack-years: 25.00 Smoking status: Current every day smoker Tobacco type: cigarettes Alcohol intake: current Drinks per week: 14 Substance use: current Substance use type: marijuana and crack/cocaine Lack of Transportation: YES Lack of Food: Often True Current Housing: I Do Not Have Housing Concerned About Future Housing: No Difficulty Paying Gas/Electric Bills: No Difficulty Paying for Meds: No Currently Unemployed: No Education: Bachelor's Degree Difficulty w/ Childcare or Family Care: No Spiritual care concerns: No Meds Home Medications and Allergies Home Medications ?Medication ?Instructions ?Recorded ?Confirmed ?Type diclofenac sodium 1 % topical gel 4 g topical QID #100 grams 04/14/23 01/08/25 Rx (Voltaren Arthritis Pain) amlodipine 5 mg tablet 5 mg PO DAILY 01/08/25 01/08/25 History bupropion HCl 300 mg 24 hr tablet, 300 mg PO DAILY 01/08/25 01/08/25 History extended release cyclobenzaprine 10 mg tablet 10 mg PO DAILY 01/08/25 01/08/25 History divalproex 250 mg tablet,delayed 250 mg PO DAILY 01/08/25 01/08/25 History release divalproex 500 mg tablet,delayed 500 mg PO DAILY 01/08/25 01/08/25 History release duloxetine 30 mg capsule,delayed 30 mg PO DAILY 01/08/25 01/08/25 History release gabapentin 300 mg capsule 300 mg PO Q8H 01/08/25 01/08/25 History hydrochlorothiazide 12.5 mg tablet 12.5 mg PO DAILY 01/08/25 01/08/25 History hydroxyzine HCl 25 mg tablet 25 mg PO BID 01/08/25 01/08/25 History lurasidone 40 mg tablet 40 mg PO DAILY 01/08/25 01/08/25 History meloxicam 15 mg tablet 15 mg PO DAILY 01/08/25 01/08/25 History tamsulosin 0.4 mg capsule 0.4 mg PO HS 01/08/25 01/08/25 History trazodone 50 mg tablet 50 mg PO HS 01/08/25 01/08/25 History Allergies Allergy/AdvReac Type Severity Reaction Status Date / Time No Known Allergies Allergy Verified 01/08/25 11:40 Vital Signs Vital Signs - 24 hr 01/07/25 22:07 01/08/25 02:49 01/08/25 03:00 Temperature 97.8 F Pulse Rate 83 72 Respiratory Rate 17 20 Blood Pressure 109/78 114/78 Pulse Oximetry 99 99 98 Oxygen Delivery Room Air Room Air 01/08/25 03:57 01/08/25 04:04 Temperature 97.3 F L Pulse Rate 69 Respiratory Rate 16 Blood Pressure 114/70 Pulse Oximetry 100 Oxygen Delivery Room Air Exam Const: General: cooperative, healthy appearing, comfortable, no acute distress, well developed, awake, Physically active, average body habitus and well nourished Nutritional Appearance: average body habitus and well nourished Orientation/consciousness: oriented to person and oriented to place HENMT: Head: normal to inspection, No palpable skull fracture present, normocephalic, atraumatic and abrasion Ears: hearing grossly normal bilaterally Eyes: General: appearance normal, both eyes and all related structures Alignment and Position: alignment normal Periorbital: periorbital findings normal Eyelids: eyelids normal Neck: Neck: normal visual inspection, full ROM and no lymphadenopathy Chest: Chest palpation & inspection: normal inspection of the chest Resp: Effort & Inspection: normal respiratory effort Auscultation: clear to auscultation bilaterally Cardio: Palpation: normal PMI Rate: regular rate Rhythm: regular rhythm Heart sounds: S1 normal heart sound present and S2 normal heart sound present Peripheral pulses: Peripheral pulses 2+ throughout GI: Inspection: normal to inspection Back/Spine/Pelvis: Back: no CVA tenderness Skin: General skin exam: normal color Lesions: no lesions Rashes: no rashes Trauma: no lacerations or abrasions Wounds: no wounds Hair: normal Nails: normal Neuro: General: oriented to person, oriented to place, oriented to time and patient oriented x3 Cranial nerves: Yes Equal, round and reactive pupils present and Yes Normal hearing present Cognition (Neuro): normal cognition Speech: normal speech Gait exam (Neuro): Normal gait present Motor exam (neuro): 5/5 motor strength present throughout Sensory Exam: normal sensation Extrem: General: normal to inspection Right upper extremity: normal to inspection and shoulder/upper arm Left upper extremity: normal to inspection and shoulder/upper arm Right lower extremity: normal to inspection Left lower extremity: normal to inspection Other: No edema noted to lower extremities at this time. H&P: Results Labs Labs: Short CBC 01/07/25 Range/Units 22:25 WBC 7.3 (4.5-10.0) K/mm3 Hgb 11.8 L (14.0-18.0) g/dL Hct 34.6 L (42.0-52.0) % Plt Count 221 (150-375) k/mm3 BMP 01/07/25 22:25 Sodium 134 L Potassium 3.6 Chloride 103 Carbon Dioxide 27 BUN 20 Creatinine 1.14 Glucose 173 H Calcium 8.6 Cardiac Enzymes 01/07/25 01/07/25 01/08/25 Range/Units 22:24 22:25 01:40 Total Creatine Kinase 1462 H (55-170) U/L Troponin I 0.014 0.014 (0.000-0.034) ng/mL Liver Function 01/07/25 Range/Units 22:25 Total Bilirubin 1.0 (0.2-1.3) mg/dL AST 61 H (17-59) U/L ALT 35 (6-50) U/L Alkaline Phosphatase 112 (38-126) U/L Albumin 3.9 (3.5-5.1) g/dL Urine 01/08/25 Range/Units 03:10 Urine Color Yellow (Yellow) Urine Appearance Clear (Clear) Urine pH 5.5 (5.0-9.0) Ur Specific [place] 1.037 H (1.001-1.035) Urine Protein Trace (Negative) mg/dL Urine Glucose (UA) Negative (Negative) mg/dL ECG Interpretation: SINUS RHYTHM NONSPECIFIC ST-T WAVE ABNORMALITY- DIFFUSE LEADS BORDERLINE ECG Compared to ECG 01/07/2025 22:19:08 NO SIGNIFICANT CHANGE Electronically Signed On 01-08-2025 08:36:49 CDT by Juan Brady D.O. Imaging CT scan - head: Radiologist's impression: CTA of chest was obtained and without evidence of PE, pneumonia, pulmonary edema. CT brain was without acute findings. Impressions Head CT 01/08/25 08:09 IMPRESSION: 1. No acute intracranial findings. Chest CTA 01/08/25 08:15 IMPRESSION: 1. No PE or other acute cardiopulmonary findings. Chest X-Ray 01/08/25 08:15 IMPRESSION: 1. No acute cardiopulmonary findings given portable technique. Assessment and Plan Assessment and plan (1) Rhabdomyolysis: Qualifiers: Rhabdomyolysis type: non-traumatic Qualified Code(s): M62.82 - Rhabdomyolysis Code(s): M62.82 - Rhabdomyolysis Status: Acute Assessment and Plan: -CK was 1462 upon arrival to the emergency room. -it was reported that the patient had walked a long distance in [facility] today. -it is also reported that his tardive dyskinesias from some of his psychiatric meds in the past. -toxicology screen was positive for amphetamines and cocaine.. -continue with IV fluids. -urine myoglobulin -daily CK -monitor renal function daily. This emesis within normal limits. -continue to monitor electrolytes daily. -he has no signs and symptoms of any infectious process at this time. (2) Osteoarthritis: Code(s): M19.90 - Unspecified osteoarthritis, unspecified site Status: Acute Assessment and Plan: -the patient had been on Voltaren gel -Tylenol has been ordered. (3) Chest pain: Qualifiers: Chest pain type: unspecified Qualified Code(s): R07.9 - Chest pain, unspecified Code(s): R07.9 - Chest pain, unspecified Status: Acute Assessment and Plan: -troponins are negative. -133 QRSd 91 QT 433 QTc 452 --[place]-- P 77 QRS 32 T 87 SINUS RHYTHM NONSPECIFIC T-WAVE ABNORMALITY Compared to ECG 01/07/2025 22:19:08 No significant change -no further complaints of chest pain CTA was performed CTA of chest was obtained and without evidence of PE, pneumonia, pulmonary edema. -echo ordered. -the patient was positive for cocaine and amphetamines. (4) Depression: Code(s): F32.A - Depression, unspecified Status: Acute Assessment and Plan: -the patient's not appear to be on any antipsychotic or into a depression medicine this time. The patient had been in treated in the past. Patient denies being on any medication at this time Quality VTE Prophylaxis VTE prophylaxis: mechanical ordered
[2025-01-08 06:03] LABS: Cannabinoid Screen Urine Positive (Negative)
[2025-01-08 06:33] LABS: Hematocrit 32.7 % (42.0-52.0); Hemoglobin 11.3 g/dL (14.0-18.0); Mean Corpuscular HGB Conc 34.6 g/dl (32-36); Mean Corpuscular Hemoglobin 31.0 pg (26-34); Mean Corpuscular Volume 89.6 fl (80-100); Platelet Count Result 194 k/mm3 (150-375); Red Blood Count 3.65 M/mm3 (4.6-6.20); White Blood Count 4.9 K/mm3 (4.5-10.0)
--- NOTE | 2025-01-08 06:39 | PM.IMPN ---
Progress Note: A&P Assessment and Plan (1) Rhabdomyolysis: Qualifiers: Rhabdomyolysis type: non-traumatic Qualified Code(s): M62.82 - Rhabdomyolysis Code(s): M62.82 - Rhabdomyolysis Status: Acute Assessment and Plan: Reported that the patient had walked a long distance and has history of tardive dyskinesias from some of his psychiatric meds in the past. Toxicology screen was positive for cannabinoids, amphetamines and cocaine. Possibly induced by drugs vs exercise vs medication vs other - CK 1462 upon arrival, now 1167 on am labs - IV fluids: 125 ml/hr - Unilateral lower extremity edema, dopplers negative - Urine myoglobulin pending - Renal function stable, continue to monitor - Electrolytes stable, continue to monitor - Monitor I/O (2) Chest pain: Qualifiers: Chest pain type: unspecified Qualified Code(s): R07.9 - Chest pain, unspecified Code(s): R07.9 - Chest pain, unspecified Status: Acute Assessment and Plan: Troponin negative x3 EKG showing sinus rhythm HR [address] elevation Chest CTA and XR: Unremarkable Obtain an Echocardiogram Possibly drug induced as UDS positive for cannabinoids, amphetamine and cocaine Monitor vital signs, I&Os, chest pain, shortness of breath and patient is a fall risk Monitor PTT, serial troponins, Serum electrolytes, and cbc Keep serum potassium >4 and keep magnesium >2 Denies chest pain and palpitations. Does not appear to be ACS as troponin, ekg and tele all unremarkable. (3) Bipolar 1 disorder: Code(s): F31.9 - Bipolar disorder, unspecified Status: Acute Assessment and Plan: Chronic, treated at [place] Continue Depakote, Latuda, Wellbutrin, and Cymbalta Patient denies missing any doses of his medications Possible ankur? drug induced vs ankur leading to drug use? Patient has rushed speech however able to stay on topic despite being easily distracted and has poor decisions (drugs and walking long distances) Tardive dyskinesia to the mouth on exam, patient has a history of TD on prior antipsychotics Plan to consult psychiatry (4) Hypertension: Code(s): I10 - Essential (primary) hypertension Status: Acute Assessment and Plan: Chronic, continue home medications - amlodipine 5 mg daily - HCTZ 12.5 mg daily - Blood pressures reviewed and remain stable, continue to monitor (5) Osteoarthritis: Code(s): M19.90 - Unspecified osteoarthritis, unspecified site Status: Acute Assessment and Plan: Chronic, continue Voltaren gel, flexaril, and meloxicam (6) Drug abuse: Code(s): F19.10 - Other psychoactive substance abuse, uncomplicated Status: Acute Assessment and Plan: UDS positive for amphetamines, cocaine, and cannabinoids. Patient states he uses illicit drugs at least once a week. Interesting in drug cessation, care coordination consulted Time Spent With Patient Time with patient: 25 - 35 minutes Subjective Date/time seen: 01/08/25 06:39 Interval history: 64 year old male with past medical history of bipolar and tardive dyskinesia presents to the hospital with chest pain, shortness of breath, dizziness, and nausea. Patient is pleasant lying comfortably in bed. He states that he was walking so long because he missed his bus and was trying to meet a friend. He then developed shortness of breath, chest pain and leg pain resulting in him going to the gas station to rest. He currently denies any chest pain, shortness of breath, palpitations, nausea/vomiting and abdominal pain. He states he takes his antipsychotic medications regularly and follows with [facility] for his bipolar. Review of Systems Review of Systems: All systems reviewed & are unremarkable except as noted in HPI and below Exam Narrative: AF HR 69 RR 16 Spo2 100 BP 114/70 General: male in no acute respiratory distress who is nontoxic appearing, lying semi recumbent in bed. HEENT: Normocephalic. Atraumatic. Extraocular movement intact. Sclera clear and anicteric. No facial asymmetry. Chest: Lungs are clear to auscultation bilaterally. No wheezes or crackles. CV: Heart was regular rate and rhythm. Abd: Abdomen was soft. Nontender. Nondistended. Positive bowel sounds. Ext: No clubbing, cyanosis. 1+ pitting edema to the right lower extremity extending to the knee. DP pulses bilaterally. Neuro: Patient is alert. Speech is clear and fast but patient staying on topic of conversation. Slight tardive dyskinesia to the mouth. Objective Data Vital Signs Vital Signs: Vital Signs - 24 hr 01/07/25 22:07 01/08/25 02:49 01/08/25 03:00 Temperature 97.8 F Pulse Rate 83 72 Respiratory Rate 17 20 Blood Pressure 109/78 114/78 Pulse Oximetry 99 99 98 Oxygen Delivery Room Air Room Air 01/08/25 03:57 01/08/25 04:04 Temperature 97.3 F L Pulse Rate 69 Respiratory Rate 16 Blood Pressure 114/70 Pulse Oximetry 100 Oxygen Delivery Room Air Intake/Output Intake/Output: Intake & Output 01/05/25 01/06/25 01/07/25 01/08/25 23:59 23:59 23:59 23:59 Intake Total 1999 Balance 1999 Meds/Results Medications: Active Medications Generic Name Dose Route Start Last Admin Trade Name Freq PRN Reason Stop Dose Admin Acetaminophen 650 mg 01/08/25 05:58 Acetaminophen 325 Mg Tablet PO Q4H PRN Headache Dextrose 12.5 gm 01/08/25 01:30 Dextrose 50% 25 Gm/50 Ml Syringe IV PUSH PRN PRN Hypoglycemia Protocol Glucagon 1 mg 01/08/25 01:30 Glucagon For Inj 1 Mg Vial IM PRN PRN Hypoglycemia Protocol Glucose 15 gm 01/08/25 01:30 Glucose Oral Gel 15 Gm Of Glucse In 37.5 Gm Tube PO PRN PRN Hypoglycemia Protocol Sodium Chloride 1,000 mls @ 125 mls/hr 01/08/25 01:30 01/08/25 02:47 Normal Saline Iv IV CONT 125 mls/hr .Q8H ZOIE Administration Dextrose 1,000 mls @ 100 mls/hr 01/08/25 01:30 Dextrose 5% 1,000 Ml IVPB PRN PRN Hypoglycemia Protocol Ondansetron HCl 4 mg 01/08/25 01:30 Ondansetron Inj 4 Mg/2 Ml Vial IV PUSH Q4H PRN Nausea Perflutren Lipid Microsphere 0 ml 01/08/25 05:59 Perflutren Lipid Microspheres 1.5 Ml Vial Diluted To 10 Ml Total Volume IV PUSH 01/11/25 06:00 ONCE PRN adequate visualization Protocol Labs Labs: Laboratory Results - last 24 hr 01/07/25 01/07/25 01/07/25 22:24 22:24 22:25 WBC 7.3 RBC 3.87 L Hgb 11.8 L Hct 34.6 L MCV 89.4 MCH 30.5 MCHC 34.1 RDW 15.0 H Plt Count 221 MPV 9.7 Immature Gran % (Auto) 0.3 Neut % (Auto) 63.2 Lymph % (Auto) 23.4 [place] % (Auto) 8.7 H Eos % (Auto) 3.7 Baso % (Auto) 0.7 Lymph # (Auto) 1.70 [place] # (Auto) 0.6 Eos # (Auto) 0.3 Baso # (Auto) 0.1 Abs Immat Gran (auto) 0.02 Absolute Neuts (auto) 4.6 Absolute Nucleated RBC 0.000 Nucleated RBC % 0.0 PT 12.1 INR 0.9 APTT 28.7 D-Dimer 0.69 H Sodium 134 L Potassium 3.6 Chloride 103 Carbon Dioxide 27 Anion Gap 4 BUN 20 Creatinine 1.14 Estim Creat Clear Calc 58 Estimated GFR > 60 Glucose 173 H POC Capillary Glucose Calcium 8.6 Magnesium 2.5 H Total Bilirubin 1.0 AST 61 H ALT 35 Alkaline Phosphatase 112 Total Creatine Kinase 1462 H Troponin I 0.014 NT-Pro-B Natriuret Pep 167 H Cancelled Total Protein 6.5 Albumin 3.9 Lipase 173 Urine Color Urine Appearance Urine pH Ur Specific [place] Urine Protein Urine Glucose (UA) Urine Ketones Ur Blood (Man) Urine Nitrate Urine Bilirubin Urine Urobilinogen Leukocyte Esterase Rfl Urine RBC Urine WBC Ur Squamous Epith Cells Urine Bacteria Urine Casts Urine Opiates Screen Urine Methadone Screen Ur Barbiturates Screen Ur Phencyclidine Scrn Ur Amphetamine Screen U Benzodiazepines Scrn Urine Cocaine Screen U Cannabinoids Screen Ethyl Alcohol Influenza A (RT-PCR) Influenza B (RT-PCR) RSV (RT-PCR) SARS-CoV-2 RNA (RT-PCR) 01/08/25 01/08/25 01/08/25 00:12 01:30 01:40 WBC RBC Hgb Hct MCV MCH MCHC RDW Plt Count MPV Immature Gran % (Auto) Neut % (Auto) Lymph % (Auto) [place] % (Auto) Eos % (Auto) Baso % (Auto) Lymph # (Auto) [place] # (Auto) Eos # (Auto) Baso # (Auto) Abs Immat Gran (auto) Absolute Neuts (auto) Absolute Nucleated RBC Nucleated RBC % PT INR APTT D-Dimer Sodium Potassium Chloride Carbon Dioxide Anion Gap BUN Creatinine Estim Creat Clear Calc Estimated GFR Glucose POC Capillary Glucose Calcium Magnesium Total Bilirubin AST ALT Alkaline Phosphatase Total Creatine Kinase Troponin I 0.014 NT-Pro-B Natriuret Pep Total Protein Albumin Lipase Urine Color Urine Appearance Urine pH Ur Specific [place] Urine Protein Urine Glucose (UA) Urine Ketones Ur Blood (Man) Urine Nitrate Urine Bilirubin Urine Urobilinogen Leukocyte Esterase Rfl Urine RBC Urine WBC Ur Squamous Epith Cells Urine Bacteria Urine Casts Urine Opiates Screen Negative Urine Methadone Screen Negative Ur Barbiturates Screen Negative Ur Phencyclidine Scrn Negative Ur Amphetamine Screen Positive A U Benzodiazepines Scrn Negative Urine Cocaine Screen Positive A U Cannabinoids Screen Positive A Ethyl Alcohol Influenza A (RT-PCR) Negative Influenza B (RT-PCR) Negative RSV (RT-PCR) Negative SARS-CoV-2 RNA (RT-PCR) Negative 01/08/25 01/08/25 01/08/25 02:42 03:10 05:53 WBC 4.9 RBC 3.65 L Hgb 11.3 L Hct 32.7 L MCV 89.6 MCH 31.0 MCHC 34.6 RDW 14.7 H Plt Count 194 MPV 9.9 Immature Gran % (Auto) Neut % (Auto) Lymph % (Auto) [place] % (Auto) Eos % (Auto) Baso % (Auto) Lymph # (Auto) [place] # (Auto) Eos # (Auto) Baso # (Auto) Abs Immat Gran (auto) Absolute Neuts (auto) Absolute Nucleated RBC Nucleated RBC % PT INR APTT D-Dimer Sodium Potassium Chloride Carbon Dioxide Anion Gap BUN Creatinine Estim Creat Clear Calc Estimated GFR Glucose POC Capillary Glucose 93 Calcium Magnesium Total Bilirubin AST ALT Alkaline Phosphatase Total Creatine Kinase Troponin I NT-Pro-B Natriuret Pep Total Protein Albumin Lipase Urine Color Yellow Urine Appearance Clear Urine pH 5.5 Ur Specific [place] 1.037 H Urine Protein Trace Urine Glucose (UA) Negative Urine Ketones Trace H Ur Blood (Man) Negative Urine Nitrate Negative Urine Bilirubin Negative Urine Urobilinogen 1.0 Leukocyte Esterase Rfl Negative Urine RBC 0-2 Urine WBC 0-5 Ur Squamous Epith Cells None seen Urine Bacteria None seen Urine Casts 3-5 Urine Opiates Screen Urine Methadone Screen Ur Barbiturates Screen Ur Phencyclidine Scrn Ur Amphetamine Screen U Benzodiazepines Scrn Urine Cocaine Screen U Cannabinoids Screen Ethyl Alcohol Influenza A (RT-PCR) Influenza B (RT-PCR) RSV (RT-PCR) SARS-CoV-2 RNA (RT-PCR) 01/08/25 22:24 WBC RBC Hgb Hct MCV MCH MCHC RDW Plt Count MPV Immature Gran % (Auto) Neut % (Auto) Lymph % (Auto) [place] % (Auto) Eos % (Auto) Baso % (Auto) Lymph # (Auto) [place] # (Auto) Eos # (Auto) Baso # (Auto) Abs Immat Gran (auto) Absolute Neuts (auto) Absolute Nucleated RBC Nucleated RBC % PT INR APTT D-Dimer Cancelled Sodium Potassium Chloride Carbon Dioxide Anion Gap BUN Creatinine Estim Creat Clear Calc Estimated GFR Glucose POC Capillary Glucose Calcium Magnesium Total Bilirubin AST ALT Alkaline Phosphatase Total Creatine Kinase Troponin I NT-Pro-B Natriuret Pep Total Protein Albumin Lipase Urine Color Urine Appearance Urine pH Ur Specific [place] Urine Protein Urine Glucose (UA) Urine Ketones Ur Blood (Man) Urine Nitrate Urine Bilirubin Urine Urobilinogen Leukocyte Esterase Rfl Urine RBC Urine WBC Ur Squamous Epith Cells Urine Bacteria Urine Casts Urine Opiates Screen Urine Methadone Screen Ur Barbiturates Screen Ur Phencyclidine Scrn Ur Amphetamine Screen U Benzodiazepines Scrn Urine Cocaine Screen U Cannabinoids Screen Ethyl Alcohol < 10 Influenza A (RT-PCR) Influenza B (RT-PCR) RSV (RT-PCR) SARS-CoV-2 RNA (RT-PCR) Quality VTE Prophylaxis VTE prophylaxis: mechanical ordered
[2025-01-08 07:02] LABS: Anion Gap 2 mmol/L (4-12); Blood Urea Nitrogen 17 mg/dL (9-20); Calcium 7.9 mg/dL (8.4-10.2); Carbon Dioxide 27 mmol/L (22-30); Chloride 108 mmol/L (98-107); Creatine Kinase 1167 U/L (55-170); Estimated CRCL calculation 67 ml/min; Estimated Glomerular Filt Rate > 60; Glucose 98 mg/dL (65-110); Potassium 3.7 mmol/L (3.4-5.0); Sodium 137 mmol/L (137-145)
[2025-01-08 07:13] LABS: Troponin I 0.012 ng/mL (0.000-0.034)
[2025-01-08] MEDS: ACETAMINOPHEN 325 MG TABLET 650 MG PO ×2 (11:45→20:24)
[2025-01-08] MEDS: buPROPion HCL XL (24 HR) 150 MG TABCR 300 MG PO (12:57)
[2025-01-08] MEDS: LURASIDONE HCL 40 MG TABLET PO (12:57)
[2025-01-08] MEDS: CYCLOBENZAPRINE HCL 10 MG TABLET PO (12:57)
[2025-01-08] MEDS: DICLOFENAC SODIUM 1% 100 GM GEL (*BKC) 1 APPLIC TOPICAL ×3 (12:58→20:25)
[2025-01-08] MEDS: DIVALPROEX SODIUM DR 250 MG TABEC PO (13:06)
[2025-01-08] MEDS: DIVALPROEX SODIUM DR 250 MG TABEC 500 MG PO (13:06)
[2025-01-08] MEDS: GABAPENTIN 300 MG CAPSULE PO ×2 (13:08→21:04)
[2025-01-08] MEDS: TAMSULOSIN HCL 0.4 MG CAPSULE PO (20:24)
[2025-01-09] VITALS (10 sets, daily range): BP systolic 105–148; BP diastolic 57–91; PULSE 65–97; RESP 16–20; TEMP 36.5–37.3; O2SAT 97–100
--- NOTE | 2025-01-09 | ECHO_ITS ---
Patient Info Name: Mara Boone Age: 64 years : 1960 Gender: Male Ht: 69 in Wt: 164 lbs BSA: 1.91 m2 HR: 69 bpm BP: 100 / 79 mmHg Technical Quality: Good Exam Date: 01/09/2025 12:42 PM Patient Status: I Admit Date: 01/09/2025 Exam Type: CA echo doppler color flow Complete two-dimensional, color flow and Doppler transthoracic echocardiogram is performed. Staff Referring Physician: Kiley Elizabeth Labor Relations Representative: Lalo Gonzalez III Attending Provider: Brooke Dockery Summary 1. Complete two-dimensional, color flow and Doppler transthoracic echocardiogram is performed. 2. Left ventricular systolic function is normal, estimated at 50-55. 3. The left ventricular diastolic function is indeterminate. Left Ventricle Left ventricular chamber dimension is normal. Left ventricular systolic function is normal, estimated at 50-55. There is no increased left ventricular wall thickness. Left ventricular septal wall motion is normal. The left ventricular diastolic function is indeterminate. Right Ventricle Right ventricular chamber dimension is normal. Right ventricular systolic function is normal. Left Atria Left atrial chamber dimension is normal. Right Atria Right atrial chamber dimension is normal. Aortic Valve The aortic valve is trileaflet. There is no aortic valve sclerosis. There is no aortic valve stenosis. There is no aortic valve regurgitation. Pulmonic Valve The pulmonic valve is normal. There is no pulmonic valve stenosis. There is no pulmonic regurgitation. Mitral Valve The mitral valve has normal leaflets. There is no mitral valve stenosis. There is no mitral valve regurgitation. Tricuspid Valve The tricuspid valve leaflets are normal. There is no significant tricuspid valve stenosis. There is no tricuspid valve regurgitation. Pericardium/Pleural The pericardium appears normal. There is no pericardial effusion. Inferior Vena Cava Normal inferior vena cava with >50% collapse upon inspiration consistent with normal right atrial pressure, 5 mmHg. Aorta The aortic root size at the sinus of Valsalva is normal. The prox ascending aorta size is normal. Left Ventricular Outflow Tract Name Value Normal LVOT 2D LVOT Diameter 2.5 cm LVOT Doppler LVOT Peak Velocity 87 cm/s LVOT Peak Gradient 3 mmHg LVOT Mean Gradient 2 mmHg LVOT VTI 16 cm LVOT VTI/AV VTI Ratio 0.8 LVOT Stroke Volume 78 ml LVOT CO 5.8 l/min LVOT CI 3.1 l/min/m2 Pulmonic Valve Name Value Normal PV Doppler PV Peak Velocity 90 cm/s PV Peak Gradient 3 mmHg Mitral Valve Name Value Normal MV Doppler MV Peak Gradient 3 mmHg MV Mean Gradient 1 mmHg MV Area (Cont Eq VTI) 3.7 cm2 MV Diastolic Function MV E Peak Velocity 74 cm/s MV A Peak Velocity 81 cm/s MV E/A 0.9 MV Decel Time (PW) 150 ms MV Annular TDI MV E/e' (Septal) 10.5 MV E/e' (Lateral) 7.4 MV E/e' (Average) 8.9 Tricuspid Valve Name Value Normal Estimated PAP/RSVP RA Pressure 5 mmHg <=5 TV Annular TDI TV Lateral Ghazal s' Velocity 15.6 cm/s >=9.5 Aortic Valve Name Value Normal AV Doppler AV Peak Velocity 103 cm/s AV Peak Gradient 4 mmHg AV Mean Gradient 3 mmHg AV VTI 20 cm AV Area (Cont Eq VTI) 3.9 cm2 >=3.0 AV Area (Cont Eq James) 4.0 cm2 AV DI (James) 0.84 AV Regurgitation 2D LVOT Area 4.8 cm2 Ventricles Name Value Normal LV Dimensions 2D/MM IVS Diastolic Thickness (2D) 0.9 cm 0.6-1.0 LVID Diastole (2D) 4.9 cm 4.2-5.8 LVIW Diastolic Thickness (2D) 1.0 cm 0.6-1.0 LVID Systole (2D) 3.9 cm 2.5-4.0 LVOT Diameter 2.5 cm LV Mass (2D Cubed) 163.97 g 88.00-224.00 LV Mass Index (2D Cubed) 86 g/m2 49-115 Relative Wall Thickness (2D) 0.41 <=0.42 LV Fractional Shortening/Ejection Fraction 2D/MM LV Fractional Shortening (2D) 21 % 25-43 LV EF (2D Teichholz) 43 % LV Diastolic Volume (4C MOD) 107 ml LV EF (4C MOD) 47 % LV Diastolic Volume (2C MOD) 80 ml LV EF (2C MOD) 57 % LV Diastolic Volume (BP MOD) 94 ml 62-150 LV Diastolic Volume Index (BP MOD) 49 ml/m2 34-74 LV Systolic Volume (BP MOD) 45 ml 21-61 LV Systolic Volume Index (BP MOD) 24 ml/m2 11-31 LV EF (BP MOD) 52 % 52-72 LV Diastolic Length (4C) 8.0 cm LV Systolic Length (4C) 6.6 cm LV Stroke Volume (4C MOD) 50 ml Atria Name Value Normal LA Dimensions LA Volume (4C A-L) 69 ml LA Volume (BP A-L) 63 ml RA Dimensions RA Area (4C) 16.0 cm2 <=18.0 Report Signatures
[2025-01-09] MEDS: SODIUM CHLORIDE 0.9% IV 1,000 ML 125 ML IV CONT ×2 (05:22→14:50)
[2025-01-09] MEDS: GABAPENTIN 300 MG CAPSULE PO ×3 (06:10→22:26)
[2025-01-09] MEDS: CYCLOBENZAPRINE HCL 10 MG TABLET PO (08:47)
[2025-01-09] MEDS: DIVALPROEX SODIUM DR 250 MG TABEC PO (08:47)
[2025-01-09] MEDS: buPROPion HCL XL (24 HR) 150 MG TABCR 300 MG PO (08:47)
[2025-01-09] MEDS: LURASIDONE HCL 40 MG TABLET PO (08:47)
[2025-01-09] MEDS: DIVALPROEX SODIUM DR 250 MG TABEC 500 MG PO (08:48)
[2025-01-09] MEDS: MELOXICAM 7.5 MG TABLET 15 MG PO (08:48)
[2025-01-09] MEDS: DICLOFENAC SODIUM 1% 100 GM GEL (*BKC) 1 APPLIC TOPICAL ×4 (08:49→20:27)
--- NOTE | 2025-01-09 09:10 | P.PNIM_ITS ---
Progress Note: A&P Assessment and Plan (1) Rhabdomyolysis: Qualifiers: Rhabdomyolysis type: non-traumatic Qualified Code(s): M62.82 - Rhabdomyolysis Code(s): M62.82 - Rhabdomyolysis Status: Acute Assessment and Plan: Reported that the patient had walked a long distance and has history of tardive dyskinesias from some of his psychiatric meds in the past. Toxicology screen was positive for cannabinoids, amphetamines and cocaine. Possibly induced by drugs vs exercise vs medication vs other - CK 1462 upon arrival, now 960 on am labs - IV fluids: 125 ml/hr - Unilateral lower extremity edema, dopplers negative - Urine myoglobulin pending - Renal function stable, continue to monitor - Electrolytes stable, continue to monitor - Monitor I/O Continues to endorse muscle aches but states improving. He does endorse chronic pain to his right knee, left hip and bilateral wrists. He states he follows pain management for this and gets injections. (2) Chest pain: Qualifiers: Chest pain type: unspecified Qualified Code(s): R07.9 - Chest pain, unspecified Code(s): R07.9 - Chest pain, unspecified Status: Acute Assessment and Plan: Troponin negative x3 EKG showing sinus rhythm HR [address] elevation Chest CTA and XR: Unremarkable Obtain an Echocardiogram Possibly drug induced as UDS positive for cannabinoids, amphetamine and cocaine Monitor vital signs, I&Os, chest pain, shortness of breath and patient is a fall risk Monitor PTT, serial troponins, Serum electrolytes, and cbc Keep serum potassium >4 and keep magnesium >2 Denies chest pain and palpitations. (3) Bipolar 1 disorder: Code(s): F31.9 - Bipolar disorder, unspecified Status: Acute Assessment and Plan: Chronic, treated at [place] Continue Depakote, Latuda, Wellbutrin, and Cymbalta Patient denies missing any doses of his medications Possible ankur? drug induced vs ankur leading to drug use? Patient had rushed speech however able to stay on topic despite being easily distracted and has poor decisions (drugs obtained from stranger and walking long distances) Tardive dyskinesia to the mouth on exam, patient has a history of TD on prior antipsychotics. Improved on exam today. Plan to consult psychiatry, appreciate recommendations (4) Hypertension: Code(s): I10 - Essential (primary) hypertension Status: Acute Assessment and Plan: Chronic, continue home medications - amlodipine 5 mg daily - HCTZ 12.5 mg daily - Blood pressures reviewed and remain stable, continue to monitor (5) Osteoarthritis: Code(s): M19.90 - Unspecified osteoarthritis, unspecified site Status: Acute Assessment and Plan: Chronic, continue Voltaren gel, flexaril, and meloxicam (6) Drug abuse: Code(s): F19.10 - Other psychoactive substance abuse, uncomplicated Status: Acute Assessment and Plan: UDS positive for amphetamines, cocaine, and cannabinoids. Patient states he uses illicit drugs at least once a week Interesting in drug cessation, care coordination consulted (7) Tobacco abuse: Code(s): Z72.0 - Tobacco use Status: Acute Assessment and Plan: Smokes 1/2 pack every 3 days, states sometimes more if able to afford it. Has been smoking for at least 45 years. Encouraged smoking cessation Nicotine patch ordered Time Spent With Patient Time with patient: 25 - 35 minutes Subjective Date/time seen: 01/09/25 09:10 Interval history: 64 year old male with past medical history of bipolar and tardive dyskinesia presents to the hospital with chest pain, shortness of breath, dizziness, and nausea. Patient is pleasant sitting up on the side of bed. He states he is feeling better today. He endorses chronic pain to his right knee, left hip and bilateral wrists. He states he follows pain management for this and gets injections. Patient continues to be able to ambulate throughout his room and states that pain has not worsened from baseline. He has no other complaints denying chest pain, palpitations, shortness of breath, nausea/vomiting and abdominal pain. Review of Systems Review of Systems: All systems reviewed & are unremarkable except as noted in HPI and below Exam Narrative: AF HR 88 RR 18 SPO2 100 BP 148/89 General: male in no acute respiratory distress who is nontoxic appearing, sitting up on side of bed. HEENT: Normocephalic. Atraumatic. Extraocular movement intact. Sclera clear and anicteric. No facial asymmetry. Chest: Lungs are clear to auscultation bilaterally. No wheezes or crackles. CV: Heart was regular rate and rhythm. Abd: Abdomen was soft. Nontender. Nondistended. Positive bowel sounds. Ext: No clubbing, cyanosis. 1+ pitting edema to the right lower extremity extending to the knee. DP pulses bilaterally. Neuro: Patient is alert. Speech is clear, continues to be fast but less pressured. No noted dyskinesia. Objective Data Vital Signs Vital Signs: Vital Signs - 24 hr 01/08/25 09:45 01/08/25 12:00 01/08/25 14:00 Temperature 97.6 F Pulse Rate 71 79 Respiratory Rate 18 Blood Pressure 107/57 L Pulse Oximetry 100 Oxygen Delivery Room Air 01/08/25 16:00 01/08/25 20:00 01/08/25 20:00 Temperature Pulse Rate 84 75 Respiratory Rate Blood Pressure Pulse Oximetry Oxygen Delivery Room Air 01/08/25 22:00 01/09/25 00:00 01/09/25 04:00 Temperature 97.4 F L Pulse Rate 75 65 69 Respiratory Rate 20 Blood Pressure 100/79 Pulse Oximetry 100 Oxygen Delivery 01/09/25 06:00 Temperature 97.7 F Pulse Rate 70 Respiratory Rate 20 Blood Pressure 105/57 L Pulse Oximetry 100 Oxygen Delivery Intake/Output Intake/Output: Intake & Output 01/06/25 01/07/25 01/08/25 01/09/25 23:59 23:59 23:59 23:59 Intake Total 5840 1000 Output Total 1760 1500 Balance 4080 -500 Meds/Results Medications: Active Medications Generic Name Dose Route Start Last Admin Trade Name Freq PRN Reason Stop Dose Admin Acetaminophen 650 mg 01/08/25 05:58 01/08/25 20:24 Acetaminophen 325 Mg Tablet PO 650 mg Q4H PRN Administration Headache Amlodipine Besylate 5 mg 01/08/25 13:00 01/09/25 08:48 Amlodipine Besylate 5 Mg Tablet PO 5 mg DAILY ZOIE Administration Bupropion HCl 300 mg 01/08/25 13:00 01/09/25 08:47 Bupropion Hcl Xl (24 Hr) 150 Mg Tabcr PO 300 mg DAILY ZOIE Administration Cyclobenzaprine HCl 10 mg 01/08/25 13:00 01/09/25 08:47 Cyclobenzaprine Hcl 10 Mg Tablet PO 10 mg DAILY ZOIE Administration Dextrose 12.5 gm 01/08/25 01:30 Dextrose 50% 25 Gm/50 Ml Syringe IV PUSH PRN PRN Hypoglycemia Protocol Diclofenac Sodium 1 applic 01/08/25 13:00 01/09/25 08:49 Diclofenac Sodium 1% 100 Gm Gel (*Bkc) TOPICAL 1 applic QID ZOIE Administration Divalproex Sodium 250 mg 01/08/25 13:00 01/09/25 08:[address] 250 Mg Tabec PO 250 mg DAILY ZOIE Administration Divalproex Sodium 500 mg 01/08/25 13:00 01/09/25 08:[address] 250 Mg Tabec PO 500 mg DAILY ZOIE Administration Duloxetine HCl 30 mg 01/08/25 13:00 01/09/25 08:48 Duloxetine Hcl 30 Mg Capsule.Dr PO 30 mg DAILY ZOIE Administration Gabapentin 300 mg 01/08/25 14:00 01/09/25 06:10 Gabapentin 300 Mg Capsule PO 300 mg Q8HR ZOIE Administration Glucagon 1 mg 01/08/25 01:30 Glucagon For Inj 1 Mg Vial IM PRN PRN Hypoglycemia Protocol Glucose 15 gm 01/08/25 01:30 Glucose Oral Gel 15 Gm Of Glucse In 37.5 Gm Tube PO PRN PRN Hypoglycemia Protocol Hydrochlorothiazide 12.5 mg 01/08/25 13:00 01/09/25 08:48 Hydrochlorothiazide 12.5 Mg Capsule PO 12.5 mg DAILY ZOIE Administration Sodium Chloride 1,000 mls @ 125 mls/hr 01/08/25 01:30 01/09/25 05:22 Normal Saline Iv IV CONT 125 mls/hr .Q8H ZOIE Administration Dextrose 1,000 mls @ 100 mls/hr 01/08/25 01:30 Dextrose 5% 1,000 Ml IVPB PRN PRN Hypoglycemia Protocol Lurasidone HCl 40 mg 01/08/25 13:00 01/09/25 08:47 Lurasidone Hcl 40 Mg Tablet PO 40 mg DAILY ZOIE Administration Meloxicam 15 mg 01/09/25 09:00 01/09/25 08:48 Meloxicam 7.5 Mg Tablet PO 15 mg QAM ZOIE Administration Ondansetron HCl 4 mg 01/08/25 01:30 Ondansetron Inj 4 Mg/2 Ml Vial IV PUSH Q4H PRN Nausea Perflutren Lipid Microsphere 0 ml 01/08/25 05:59 Perflutren Lipid Microspheres 1.5 Ml Vial Diluted To 10 Ml Total Volume IV PUSH 01/11/25 06:00 ONCE PRN adequate visualization Protocol Tamsulosin HCl 0.4 mg 01/08/25 21:00 01/08/25 20:24 Tamsulosin Hcl 0.4 Mg Capsule PO 0.4 mg HS ZOIE Administration Radiology Results: ITS Impressions Head CT 01/08/25 08:09 IMPRESSION: 1. No acute intracranial findings. Chest CTA 01/08/25 08:15 IMPRESSION: 1. No PE or other acute cardiopulmonary findings. Chest X-Ray 01/08/25 08:15 IMPRESSION: 1. No acute cardiopulmonary findings given portable technique. Venous Doppler Study 01/08/25 10:48 IMPRESSION: 1. No DVT either leg. Labs Labs: Laboratory Results - last 24 hr 01/07/25 01/07/25 01/07/25 22:24 22:24 22:25 WBC 7.3 RBC 3.87 L Hgb 11.8 L Hct 34.6 L MCV 89.4 MCH 30.5 MCHC 34.1 RDW 15.0 H Plt Count 221 MPV 9.7 Immature Gran % (Auto) 0.3 Neut % (Auto) 63.2 Lymph % (Auto) 23.4 [place] % (Auto) 8.7 H Eos % (Auto) 3.7 Baso % (Auto) 0.7 Lymph # (Auto) 1.70 [place] # (Auto) 0.6 Eos # (Auto) 0.3 Baso # (Auto) 0.1 Abs Immat Gran (auto) 0.02 Absolute Neuts (auto) 4.6 Absolute Nucleated RBC 0.000 Nucleated RBC % 0.0 PT 12.1 INR 0.9 APTT 28.7 D-Dimer 0.69 H Sodium 134 L Potassium 3.6 Chloride 103 Carbon Dioxide 27 Anion Gap 4 BUN 20 Creatinine 1.14 Estim Creat Clear Calc 58 Estimated GFR > 60 Glucose 173 H POC Capillary Glucose Calcium 8.6 Magnesium 2.5 H Total Bilirubin 1.0 AST 61 H ALT 35 Alkaline Phosphatase 112 Total Creatine Kinase 1462 H Troponin I 0.014 NT-Pro-B Natriuret Pep 167 H Cancelled Total Protein 6.5 Albumin 3.9 Lipase 173 Urine Color Urine Appearance Urine pH Ur Specific [place] Urine Protein Urine Glucose (UA) Urine Ketones Ur Blood (Man) Urine Nitrate Urine Bilirubin Urine Urobilinogen Leukocyte Esterase Rfl Urine RBC Urine WBC Ur Squamous Epith Cells Urine Bacteria Urine Casts Urine Opiates Screen Urine Methadone Screen Ur Barbiturates Screen Ur Phencyclidine Scrn Ur Amphetamine Screen U Benzodiazepines Scrn Urine Cocaine Screen U Cannabinoids Screen Ethyl Alcohol Influenza A (RT-PCR) Influenza B (RT-PCR) RSV (RT-PCR) SARS-CoV-2 RNA (RT-PCR) 01/08/25 01/08/25 01/08/25 00:12 01:30 01:40 WBC RBC Hgb Hct MCV MCH MCHC RDW Plt Count MPV Immature Gran % (Auto) Neut % (Auto) Lymph % (Auto) [place] % (Auto) Eos % (Auto) Baso % (Auto) Lymph # (Auto) [place] # (Auto) Eos # (Auto) Baso # (Auto) Abs Immat Gran (auto) Absolute Neuts (auto) Absolute Nucleated RBC Nucleated RBC % PT INR APTT D-Dimer Sodium Potassium Chloride Carbon Dioxide Anion Gap BUN Creatinine Estim Creat Clear Calc Estimated GFR Glucose POC Capillary Glucose Calcium Magnesium Total Bilirubin AST ALT Alkaline Phosphatase Total Creatine Kinase Troponin I 0.014 NT-Pro-B Natriuret Pep Total Protein Albumin Lipase Urine Color Urine Appearance Urine pH Ur Specific [place] Urine Protein Urine Glucose (UA) Urine Ketones Ur Blood (Man) Urine Nitrate Urine Bilirubin Urine Urobilinogen Leukocyte Esterase Rfl Urine RBC Urine WBC Ur Squamous Epith Cells Urine Bacteria Urine Casts Urine Opiates Screen Negative Urine Methadone Screen Negative Ur Barbiturates Screen Negative Ur Phencyclidine Scrn Negative Ur Amphetamine Screen Positive A U Benzodiazepines Scrn Negative Urine Cocaine Screen Positive A U Cannabinoids Screen Positive A Ethyl Alcohol Influenza A (RT-PCR) Negative Influenza B (RT-PCR) Negative RSV (RT-PCR) Negative SARS-CoV-2 RNA (RT-PCR) Negative 01/08/25 01/08/25 01/08/25 02:42 03:10 05:53 WBC 4.9 RBC 3.65 L Hgb 11.3 L Hct 32.7 L MCV 89.6 MCH 31.0 MCHC 34.6 RDW 14.7 H Plt Count 194 MPV 9.9 Immature Gran % (Auto) Neut % (Auto) Lymph % (Auto) [place] % (Auto) Eos % (Auto) Baso % (Auto) Lymph # (Auto) [place] # (Auto) Eos # (Auto) Baso # (Auto) Abs Immat Gran (auto) Absolute Neuts (auto) Absolute Nucleated RBC Nucleated RBC % PT INR APTT D-Dimer Sodium Potassium Chloride Carbon Dioxide Anion Gap BUN Creatinine Estim Creat Clear Calc Estimated GFR Glucose POC Capillary Glucose 93 Calcium Magnesium Total Bilirubin AST ALT Alkaline Phosphatase Total Creatine Kinase Troponin I NT-Pro-B Natriuret Pep Total Protein Albumin Lipase Urine Color Yellow Urine Appearance Clear Urine pH 5.5 Ur Specific [place] 1.037 H Urine Protein Trace Urine Glucose (UA) Negative Urine Ketones Trace H Ur Blood (Man) Negative Urine Nitrate Negative Urine Bilirubin Negative Urine Urobilinogen 1.0 Leukocyte Esterase Rfl Negative Urine RBC 0-2 Urine WBC 0-5 Ur Squamous Epith Cells None seen Urine Bacteria None seen Urine Casts 3-5 Urine Opiates Screen Urine Methadone Screen Ur Barbiturates Screen Ur Phencyclidine Scrn Ur Amphetamine Screen U Benzodiazepines Scrn Urine Cocaine Screen U Cannabinoids Screen Ethyl Alcohol Influenza A (RT-PCR) Influenza B (RT-PCR) RSV (RT-PCR) SARS-CoV-2 RNA (RT-PCR) 01/08/25 22:24 WBC RBC Hgb Hct MCV MCH MCHC RDW Plt Count MPV Immature Gran % (Auto) Neut % (Auto) Lymph % (Auto) [place] % (Auto) Eos % (Auto) Baso % (Auto) Lymph # (Auto) [place] # (Auto) Eos # (Auto) Baso # (Auto) Abs Immat Gran (auto) Absolute Neuts (auto) Absolute Nucleated RBC Nucleated RBC % PT INR APTT D-Dimer Cancelled Sodium Potassium Chloride Carbon Dioxide Anion Gap BUN Creatinine Estim Creat Clear Calc Estimated GFR Glucose POC Capillary Glucose Calcium Magnesium Total Bilirubin AST ALT Alkaline Phosphatase Total Creatine Kinase Troponin I NT-Pro-B Natriuret Pep Total Protein Albumin Lipase Urine Color Urine Appearance Urine pH Ur Specific [place] Urine Protein Urine Glucose (UA) Urine Ketones Ur Blood (Man) Urine Nitrate Urine Bilirubin Urine Urobilinogen Leukocyte Esterase Rfl Urine RBC Urine WBC Ur Squamous Epith Cells Urine Bacteria Urine Casts Urine Opiates Screen Urine Methadone Screen Ur Barbiturates Screen Ur Phencyclidine Scrn Ur Amphetamine Screen U Benzodiazepines Scrn Urine Cocaine Screen U Cannabinoids Screen Ethyl Alcohol < 10 Influenza A (RT-PCR) Influenza B (RT-PCR) RSV (RT-PCR) SARS-CoV-2 RNA (RT-PCR) Quality VTE Prophylaxis VTE prophylaxis: mechanical ordered
[2025-01-09 09:33] LABS: Hematocrit 34.6 % (42.0-52.0); Hemoglobin 11.9 g/dL (14.0-18.0); Mean Corpuscular HGB Conc 34.4 g/dl (32-36); Mean Corpuscular Hemoglobin 31.0 pg (26-34); Mean Corpuscular Volume 90.1 fl (80-100); Platelet Count Result 195 k/mm3 (150-375); Red Blood Count 3.84 M/mm3 (4.6-6.20); White Blood Count 4.6 K/mm3 (4.5-10.0)
[2025-01-09 10:02] LABS: Alanine Aminotransferase 32 U/L (6-50); Albumin Level 3.5 g/dL (3.5-5.1); Alkaline Phosphatase 100 U/L (38-126); Anion Gap 6 mmol/L (4-12); Aspartate Amino Transferase 49 U/L (17-59); Bilirubin,Total 0.6 mg/dL (0.2-1.3); Blood Urea Nitrogen 9 mg/dL (9-20); Calcium 8.4 mg/dL (8.4-10.2); Carbon Dioxide 26 mmol/L (22-30); Chloride 104 mmol/L (98-107); Creatine Kinase 960 U/L (55-170); Estimated CRCL calculation 70 ml/min; Estimated Glomerular Filt Rate > 60; Glucose 150 mg/dL (65-110); Potassium 3.4 mmol/L (3.4-5.0); Sodium 136 mmol/L (137-145); Total Protein 6.1 g/dL (6.3-8.2)
[2025-01-09] MEDS: NICOTINE (*PBKC) 14 MG PATCH 1 PATCH TRANSDERM (17:17)
[2025-01-09] MEDS: TAMSULOSIN HCL 0.4 MG CAPSULE PO (20:28)
[2025-01-10] VITALS: PULSE 65
[2025-01-10] MEDS: SODIUM CHLORIDE 0.9% IV 1,000 ML 125 ML IV CONT ×2 (01:05→09:06)
[2025-01-10 04:00] VITALS: PULSE 63
[2025-01-10] MEDS: GABAPENTIN 300 MG CAPSULE PO ×3 (05:54→21:49)
[2025-01-10 06:00] VITALS: BP 120/81; PULSE 73; RESP 16; TEMP 36.8; O2SAT 100
--- NOTE | 2025-01-10 07:43 | PM.IMPN ---
Progress Note: A&P Assessment and Plan (1) Rhabdomyolysis: Qualifiers: Rhabdomyolysis type: non-traumatic Qualified Code(s): M62.82 - Rhabdomyolysis Code(s): M62.82 - Rhabdomyolysis Status: Acute Assessment and Plan: Reported that the patient had walked a long distance and has history of tardive dyskinesias from some of his psychiatric meds in the past. Toxicology screen was positive for cannabinoids, amphetamines and cocaine. Possibly induced by drugs vs exercise vs medication vs other - CK 1462 upon arrival, now 690 on am labs. Fluids discontinued. - Unilateral lower extremity edema, dopplers negative - Urine myoglobulin pending - Renal function stable, continue to monitor - Electrolytes stable, continue to monitor - Monitor I/O He does endorse chronic pain to his right knee, left hip and bilateral wrists. He states he follows pain management for this and gets injections. Encouraged patient to continue with pain management for his chronic pain issues. Patient reports prior improvement of pain with Toradol. Started on Toradol as needed for pain. (2) Chest pain: Qualifiers: Chest pain type: unspecified Qualified Code(s): R07.9 - Chest pain, unspecified Code(s): R07.9 - Chest pain, unspecified Status: Acute Assessment and Plan: Troponin negative x3 EKG showing sinus rhythm HR [address] elevation Chest CTA and XR: Unremarkable Obtain an Echocardiogram Possibly drug induced as UDS positive for cannabinoids, amphetamine and cocaine Monitor vital signs, I&Os, chest pain, shortness of breath and patient is a fall risk Monitor PTT, serial troponins, Serum electrolytes, and cbc Keep serum potassium >4 and keep magnesium >2 Denies chest pain and palpitations. Resolved. (3) Bipolar 1 disorder: Code(s): F31.9 - Bipolar disorder, unspecified Status: Acute Assessment and Plan: Chronic, treated at [place] Continue Depakote, Latuda, Wellbutrin, and Cymbalta Patient denies missing any doses of his medications Possible ankur? drug induced vs ankur leading to drug use? Patient had rushed speech however able to stay on topic despite being easily distracted and has poor decisions (drugs obtained from stranger and walking long distances) Tardive dyskinesia to the mouth on exam, patient has a history of TD on prior antipsychotics. Improved on exam today. Consult psychiatry, appreciate recommendations Speech and dyskinesia continues to improve. Awaiting Psychiatry recommendations. (4) Hypertension: Code(s): I10 - Essential (primary) hypertension Status: Acute Assessment and Plan: Chronic, continue home medications - amlodipine 5 mg daily - HCTZ 12.5 mg daily - Blood pressures reviewed and remain stable, continue to monitor (5) Osteoarthritis: Code(s): M19.90 - Unspecified osteoarthritis, unspecified site Status: Acute Assessment and Plan: Chronic, continue Voltaren gel, flexaril, and meloxicam (6) Drug abuse: Code(s): F19.10 - Other psychoactive substance abuse, uncomplicated Status: Acute Assessment and Plan: UDS positive for amphetamines, cocaine, and cannabinoids. Patient states he uses illicit drugs at least once a week Interesting in drug cessation, care coordination consulted and resources given. (7) Tobacco abuse: Code(s): Z72.0 - Tobacco use Status: Acute Assessment and Plan: Smokes 1/2 pack every 3 days, states sometimes more if able to afford it. Has been smoking for at least 45 years. Encouraged smoking cessation Nicotine gum ordered Time Spent With Patient Time with patient: 25 - 35 minutes Subjective Date/time seen: 01/10/25 07:43 Interval history: 64 year old male with past medical history of bipolar and tardive dyskinesia presents to the hospital with chest pain, shortness of breath, dizziness, and nausea. Patient is sitting up on the side the bed. He has no acute events overnight. He has no complaints at this time denying chest pain, shortness a breath, palpitations, nausea/vomiting, and abdominal pain. Awaiting psych recommendations. Review of Systems Review of Systems: All systems reviewed & are unremarkable except as noted in HPI and below Exam Narrative: AF HR 73 RR 16 SpO2 100 BP 120/81 General: male in no acute respiratory distress who is nontoxic appearing, sitting up on side of bed. HEENT: Normocephalic. Atraumatic. Extraocular movement intact. Sclera clear and anicteric. No facial asymmetry. Chest: Lungs are clear to auscultation bilaterally. No wheezes or crackles. CV: Heart was regular rate and rhythm. Abd: Abdomen was soft. Nontender. Nondistended. Positive bowel sounds. Ext: No clubbing, cyanosis. Pitting edema to the right lower extremity extending to the knee. DP pulses bilaterally. Neuro: Patient is alert. Speech is clear, continues to be fast. No noted dyskinesia. Objective Data Vital Signs Vital Signs: Vital Signs - 24 hr 01/09/25 08:00 01/09/25 08:50 01/09/25 12:00 Temperature Pulse Rate 80 97 Respiratory Rate Blood Pressure Pulse Oximetry Oxygen Delivery Room Air Fraction of Inspired Oxygen 01/09/25 14:00 01/09/25 16:00 01/09/25 20:00 Temperature 99.2 F Pulse Rate 88 78 Respiratory Rate 18 Blood Pressure 148/89 H Pulse Oximetry 100 Oxygen Delivery Room Air Fraction of Inspired Oxygen 01/09/25 20:00 01/09/25 20:28 01/09/25 21:31 Temperature 98.6 F Pulse Rate 80 85 76 Respiratory Rate 20 16 Blood Pressure 136/91 H Pulse Oximetry 97 99 Oxygen Delivery Room Air Fraction of Inspired Oxygen 21 01/10/25 00:00 01/10/25 04:00 01/10/25 06:00 Temperature 98.2 F Pulse Rate 65 63 73 Respiratory Rate 16 Blood Pressure 120/81 Pulse Oximetry 100 Oxygen Delivery Fraction of Inspired Oxygen Intake/Output Intake/Output: Intake & Output 01/07/25 01/08/25 01/09/25 01/10/25 23:59 23:59 23:59 23:59 Intake Total 6080 4080 Output Total 1760 2350 1450 Balance 4320 1730 -1450 Meds/Results Medications: Active Medications Generic Name Dose Route Start Last Admin Trade Name Freq PRN Reason Stop Dose Admin Acetaminophen 650 mg 01/08/25 05:58 01/08/25 20:24 Acetaminophen 325 Mg Tablet PO 650 mg Q4H PRN Administration Headache Amlodipine Besylate 5 mg 01/08/25 13:00 01/09/25 08:48 Amlodipine Besylate 5 Mg Tablet PO 5 mg DAILY ZOIE Administration Bupropion HCl 300 mg 01/08/25 13:00 01/09/25 08:47 Bupropion Hcl Xl (24 Hr) 150 Mg Tabcr PO 300 mg DAILY ZOIE Administration Cyclobenzaprine HCl 10 mg 01/08/25 13:00 01/09/25 08:47 Cyclobenzaprine Hcl 10 Mg Tablet PO 10 mg DAILY ZOIE Administration Dextrose 12.5 gm 01/08/25 01:30 Dextrose 50% 25 Gm/50 Ml Syringe IV PUSH PRN PRN Hypoglycemia Protocol Diclofenac Sodium 1 applic 01/08/25 13:00 01/09/25 20:27 Diclofenac Sodium 1% 100 Gm Gel (*Bkc) TOPICAL 1 applic QID ZOIE Administration Divalproex Sodium 250 mg 01/08/25 13:00 01/09/25 08:[address] 250 Mg Tabec PO 250 mg DAILY ZOIE Administration Divalproex Sodium 500 mg 01/08/25 13:00 01/09/25 08:[address] 250 Mg Tabec PO 500 mg DAILY ZOIE Administration Duloxetine HCl 30 mg 01/08/25 13:00 01/09/25 08:48 Duloxetine Hcl 30 Mg Capsule.Dr PO 30 mg DAILY ZOIE Administration Gabapentin 300 mg 01/08/25 14:00 01/10/25 05:54 Gabapentin 300 Mg Capsule PO 300 mg Q8HR ZOIE Administration Glucagon 1 mg 01/08/25 01:30 Glucagon For Inj 1 Mg Vial IM PRN PRN Hypoglycemia Protocol Glucose 15 gm 01/08/25 01:30 Glucose Oral Gel 15 Gm Of Glucse In 37.5 Gm Tube PO PRN PRN Hypoglycemia Protocol Hydrochlorothiazide 12.5 mg 01/08/25 13:00 01/09/25 08:48 Hydrochlorothiazide 12.5 Mg Capsule PO 12.5 mg DAILY ZOIE Administration Sodium Chloride 1,000 mls @ 125 mls/hr 01/08/25 01:30 01/10/25 01:05 Normal Saline Iv IV CONT 125 mls/hr .Q8H ZOIE Administration Dextrose 1,000 mls @ 100 mls/hr 01/08/25 01:30 Dextrose 5% 1,000 Ml IVPB PRN PRN Hypoglycemia Protocol Lurasidone HCl 40 mg 01/08/25 13:00 01/09/25 08:47 Lurasidone Hcl 40 Mg Tablet PO 40 mg DAILY ZOIE Administration Meloxicam 15 mg 01/09/25 09:00 01/09/25 08:48 Meloxicam 7.5 Mg Tablet PO 15 mg QAM ZOIE Administration Nicotine 1 patch 01/09/25 16:05 01/09/25 17:17 Nicotine (*Pbkc) 14 Mg Patch TRANSDERM 1 patch DAILY ZOIE Administration Ondansetron HCl 4 mg 01/08/25 01:30 Ondansetron Inj 4 Mg/2 Ml Vial IV PUSH Q4H PRN Nausea Perflutren Lipid Microsphere 0 ml 01/08/25 05:59 Perflutren Lipid Microspheres 1.5 Ml Vial Diluted To 10 Ml Total Volume IV PUSH 01/11/25 06:00 ONCE PRN adequate visualization Protocol Tamsulosin HCl 0.4 mg 01/08/25 21:00 01/09/25 20:28 Tamsulosin Hcl 0.4 Mg Capsule PO 0.4 mg HS ZOIE Administration Radiology Results: ITS Impressions Head CT 01/08/25 08:09 IMPRESSION: 1. No acute intracranial findings. Chest CTA 01/08/25 08:15 IMPRESSION: 1. No PE or other acute cardiopulmonary findings. Chest X-Ray 01/08/25 08:15 IMPRESSION: 1. No acute cardiopulmonary findings given portable technique. Venous Doppler Study 01/08/25 10:48 IMPRESSION: 1. No DVT either leg. Labs Labs: Laboratory Results - last 24 hr 01/09/25 09:27 WBC 4.6 RBC 3.84 L Hgb 11.9 L Hct 34.6 L MCV 90.1 MCH 31.0 MCHC 34.4 RDW 14.9 H Plt Count 195 MPV 9.9 Sodium 136 L Potassium 3.4 Chloride 104 Carbon Dioxide 26 Anion Gap 6 BUN 9 D Creatinine 0.84 Estim Creat Clear Calc 70 Estimated GFR > 60 Glucose 150 H Calcium 8.4 Total Bilirubin 0.6 AST 49 ALT 32 Alkaline Phosphatase 100 Total Creatine Kinase 960 H Total Protein 6.1 L Albumin 3.5 Quality VTE Prophylaxis VTE prophylaxis: mechanical ordered
[2025-01-10 08:00] VITALS: PULSE 73; RESP 16; O2SAT 100
[2025-01-10 08:24] LABS: Hematocrit 36.4 % (42.0-52.0); Hemoglobin 12.3 g/dL (14.0-18.0); Mean Corpuscular HGB Conc 33.8 g/dl (32-36); Mean Corpuscular Hemoglobin 30.6 pg (26-34); Mean Corpuscular Volume 90.5 fl (80-100); Platelet Count Result 198 k/mm3 (150-375); Red Blood Count 4.02 M/mm3 (4.6-6.20); White Blood Count 3.3 K/mm3 (4.5-10.0)
[2025-01-10 08:49] LABS: Alanine Aminotransferase 28 U/L (6-50); Albumin Level 3.4 g/dL (3.5-5.1); Alkaline Phosphatase 103 U/L (38-126); Anion Gap 3 mmol/L (4-12); Aspartate Amino Transferase 41 U/L (17-59); Bilirubin,Total 0.5 mg/dL (0.2-1.3); Blood Urea Nitrogen 5 mg/dL (9-20); Calcium 8.5 mg/dL (8.4-10.2); Carbon Dioxide 27 mmol/L (22-30); Chloride 107 mmol/L (98-107); Creatine Kinase 690 U/L (55-170); Estimated CRCL calculation 68 ml/min; Estimated Glomerular Filt Rate > 60; Glucose 91 mg/dL (65-110); Potassium 4.1 mmol/L (3.4-5.0); Sodium 137 mmol/L (137-145); Total Protein 6.0 g/dL (6.3-8.2)
[2025-01-10] MEDS: DIVALPROEX SODIUM DR 250 MG TABEC PO (09:02)
[2025-01-10] MEDS: LURASIDONE HCL 40 MG TABLET PO (09:02)
[2025-01-10] MEDS: MELOXICAM 7.5 MG TABLET 15 MG PO (09:02)
[2025-01-10] MEDS: CYCLOBENZAPRINE HCL 10 MG TABLET PO (09:02)
[2025-01-10] MEDS: DIVALPROEX SODIUM DR 250 MG TABEC 500 MG PO (09:03)
[2025-01-10] MEDS: DICLOFENAC SODIUM 1% 100 GM GEL (*BKC) 1 APPLIC TOPICAL ×3 (09:03→21:50)
[2025-01-10] MEDS: buPROPion HCL XL (24 HR) 150 MG TABCR 300 MG PO (09:06)
[2025-01-10 16:49] VITALS: BP 139/98; PULSE 91; RESP 16; TEMP 36.3; O2SAT 99
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
[2025-01-10 21:14] VITALS: BP 125/71; PULSE 69; RESP 16; TEMP 36.3; O2SAT 100
[2025-01-11] MEDS: GABAPENTIN 300 MG CAPSULE PO (05:40)
[2025-01-11] MEDS: NICOTINE (*PBKC) 2 MG GUM PO ×2 (05:41→08:48)
[2025-01-11 06:00] VITALS: BP 158/86; PULSE 76; RESP 16; TEMP 36.1; O2SAT 100
[2025-01-11 07:03] LABS: Hematocrit 40.0 % (42.0-52.0); Hemoglobin 13.5 g/dL (14.0-18.0); Mean Corpuscular HGB Conc 33.8 g/dl (32-36); Mean Corpuscular Hemoglobin 30.7 pg (26-34); Mean Corpuscular Volume 90.9 fl (80-100); Platelet Count Result 229 k/mm3 (150-375); Red Blood Count 4.40 M/mm3 (4.6-6.20); White Blood Count 3.9 K/mm3 (4.5-10.0)
[2025-01-11 07:13] LABS: Alanine Aminotransferase 30 U/L (6-50); Albumin Level 4.0 g/dL (3.5-5.1); Alkaline Phosphatase 93 U/L (38-126); Anion Gap 6 mmol/L (4-12); Aspartate Amino Transferase 42 U/L (17-59); Bilirubin,Total 0.3 mg/dL (0.2-1.3); Blood Urea Nitrogen 9 mg/dL (9-20); Calcium 8.9 mg/dL (8.4-10.2); Carbon Dioxide 30 mmol/L (22-30); Chloride 103 mmol/L (98-107); Estimated CRCL calculation 59 ml/min; Estimated Glomerular Filt Rate > 60; Glucose 82 mg/dL (65-110); Potassium 3.7 mmol/L (3.4-5.0); Sodium 139 mmol/L (137-145); Total Protein 6.9 g/dL (6.3-8.2)
[2025-01-11] MEDS: MELOXICAM 7.5 MG TABLET 15 MG PO (08:44)
[2025-01-11] MEDS: DIVALPROEX SODIUM DR 250 MG TABEC PO (08:44)
[2025-01-11] MEDS: buPROPion HCL XL (24 HR) 150 MG TABCR 300 MG PO (08:45)
[2025-01-11] MEDS: CYCLOBENZAPRINE HCL 10 MG TABLET PO (08:45)
[2025-01-11] MEDS: LURASIDONE HCL 40 MG TABLET PO (08:45)
[2025-01-11] MEDS: DIVALPROEX SODIUM DR 250 MG TABEC 500 MG PO (08:45)
[2025-01-11] MEDS: DICLOFENAC SODIUM 1% 100 GM GEL (*BKC) 1 APPLIC TOPICAL (08:49)
[2025-01-11] MEDS: KETOROLAC 10 MG TABLET PO (08:54)
--- NOTE | 2025-01-11 09:07 | P.DS_ITS ---
DS: Admitting Diagnosis Discharge Date 01/11 Admitting Diagnosis rhabdo, chest pain DS: Discharge Diagnosis Discharge Diagnosis (1) Rhabdomyolysis: Qualifiers: Rhabdomyolysis type: non-traumatic Qualified Code(s): M62.82 - Rhabdomyolysis Code(s): M62.82 - Rhabdomyolysis Status: Acute (2) Chest pain: Qualifiers: Chest pain type: unspecified Qualified Code(s): R07.9 - Chest pain, unspecified Code(s): R07.9 - Chest pain, unspecified Status: Acute (3) Bipolar 1 disorder: Code(s): F31.9 - Bipolar disorder, unspecified Status: Acute (4) Hypertension: Code(s): I10 - Essential (primary) hypertension Status: Acute (5) Osteoarthritis: Code(s): M19.90 - Unspecified osteoarthritis, unspecified site Status: Acute (6) Drug abuse: Code(s): F19.10 - Other psychoactive substance abuse, uncomplicated Status: Acute (7) Tobacco abuse: Code(s): Z72.0 - Tobacco use Status: Acute DS: Summary Hospital Course Hospital Course: 64 year old male with past medical history of bipolar and tardive dyskinesia presents to the hospital with chest pain, shortness of breath, dizziness, and nausea. Psych was consulted: obtain Valproic acid level- target range should be between 50 and 150 mcg/ml - adjust dose according to blood level - please make sure you follow with your psychiatrist - recheck blood level in 1 to 2 weeks - blood levels should be checked every 3 to 6 months - follow up with primary psychiatric care provider - increase Lurasidone to 60 mg daily- must be taken with at least 350 calories for proper absorption. Depakote level is at the lower end of therapeutic range. patient should follow up with primary psychiatric care provider after discharge to discuss Depakote adjustment if the increase in Lurasidone is ineffective. - Continue Duloxetine 30 mg daily - Continue Bupropion HCL 300 mg daily - continue Divalproex 250 mg + 500 mg daily (adjust according to blood work) - continue trazodone 50 mg HS # Rhabdomyolysis type: non-traumatic Reported that the patient had walked a long distance and has history of tardive dyskinesias from some of his psychiatric meds in the past. Toxicology screen was positive for cannabinoids, amphetamines and cocaine. Possibly induced by drugs vs exercise vs medication vs other - CK 1462 upon arrival, now 690 on am labs. Fluids discontinued. - Unilateral lower extremity edema, dopplers negative - Renal function stable - Electrolytes stable resolved # chest pain Troponin negative x3 EKG showing sinus rhythm HR [address] elevation Chest CTA and XR: Unremarkable Possibly drug induced as UDS positive for cannabinoids, amphetamine and cocaine Resolved. # Hypertension: Chronic, continue home medications - amlodipine 5 mg daily - HCTZ 12.5 mg daily - Blood pressures reviewed and remain stable, continue to monitor #Osteoarthritis: Chronic, continue Voltaren gel, Flexeril, and meloxicam #Drug abuse: UDS positive for amphetamines, cocaine, and cannabinoids. Patient states he uses illicit drugs at least once a week Interesting in drug cessation, care coordination consulted and resources given. #Tobacco abuse: Smokes 1/2 pack every 3 days, states sometimes more if able to afford it. Has been smoking for at least 45 years. Encouraged smoking cessation Nicotine gum ordered Status at Discharge Functional status at discharge: independent ambulation Overall status at discharge: patient is progressing back to baseline Time Spent with Patient Time attestation: Total time spent providing and/or coordinating discharge services: Time spent: Less than 30 minutes Exam Narrative: General: male in no acute respiratory distress who is nontoxic appearing, sitting up on side of bed. HEENT: Normocephalic. Atraumatic. Extraocular movement intact. Sclera clear and anicteric. No facial asymmetry. Chest: Lungs are clear to auscultation bilaterally. No wheezes or crackles. CV: Heart was regular rate and rhythm. Abd: Abdomen was soft. Nontender. Nondistended. Positive bowel sounds. Ext: No clubbing, cyanosis. Pitting edema to the right lower extremity extending to the knee. DP pulses bilaterally. Neuro: Patient is alert. Speech is clear, continues to be fast. No noted dyskinesia. Const: General: cooperative, healthy appearing, comfortable, no acute distress, well developed, awake, Physically active, average body habitus and well nourished Nutritional Appearance: average body habitus and well nourished Orientation/consciousness: oriented to person, oriented to place, oriented to time and patient oriented x3 HENMT: Head: normal to inspection, No palpable skull fracture present, normocephalic, atraumatic and abrasion Ears: hearing grossly normal bilaterally Eyes: General: appearance normal, both eyes and all related structures Alignment and Position: alignment normal Periorbital: periorbital findings normal Eyelids: eyelids normal Pupils: Equal, round and reactive pupils present Neck: Neck: normal visual inspection, full ROM and no lymphadenopathy Chest: Chest palpation & inspection: normal inspection of the chest Resp: Effort & Inspection: normal respiratory effort Auscultation: clear to auscultation bilaterally Cardio: Palpation: normal PMI Rate: regular rate Rhythm: regular rhythm Heart sounds: S1 normal heart sound present and S2 normal heart sound present Peripheral pulses: Peripheral pulses 2+ throughout GI: Inspection: normal to inspection : General: Yes no CVA tenderness Back/Spine/Pelvis: Back: no CVA tenderness Skin: General skin exam: normal color Lesions: no lesions Rashes: no rashes Trauma: no lacerations or abrasions Wounds: no wounds Hair: normal Nails: normal Neuro: General: oriented to person, oriented to place, oriented to time and patient oriented x3 Cranial nerves: Yes Equal, round and reactive pupils present and Yes Normal hearing present Cognition (Neuro): normal cognition Speech: normal speech Gait exam (Neuro): Normal gait present Motor exam (neuro): 5/5 motor strength present throughout Sensory Exam: normal sensation Extrem: General: normal to inspection Right upper extremity: normal to inspection and shoulder/upper arm Left upper extremity: normal to inspection and shoulder/upper arm Right lower extremity: normal to inspection Left lower extremity: normal to inspection Other: No edema noted to lower extremities at this time. DS: Data Data Completed and Pending Labs on day of discharge: Labs from last 24 hours 01/11/25 01/10/25 05:43 19:26 WBC 3.9 L RBC 4.40 L Hgb 13.5 L Hct 40.0 L MCV 90.9 MCH 30.7 MCHC 33.8 RDW 14.6 H Plt Count 229 MPV 10.5 H Sodium 139 Potassium 3.7 Chloride 103 Carbon Dioxide 30 Anion Gap 6 BUN 9 Creatinine 1.00 Estim Creat Clear Calc 59 Estimated GFR > 60 Glucose 82 Calcium 8.9 Total Bilirubin 0.3 AST 42 ALT 30 Alkaline Phosphatase 93 Total Protein 6.9 Albumin 4.0 Valproic Acid 51.9 Discharge Plan Discharge Attending physician on discharge: Mike Castillo Oca Consulting providers: Martine Lake; Hema Terrell Discharging Clinician: Alyson May Patient Disposition: Home Activity: may shower Diet: regular Discharge Instructions: THis is instructions form psych eval: - obtain Valproic acid level- target range should be between 50 and 150 mcg/ml - adjust dose according to blood level - please make sure you follow with your psychiatrist - recheck blood level in 1 to 2 weeks - blood levels should be checked every 3 to 6 months - follow up with primary psychiatric care provider - increase Lurasidone to 60 mg daily- must be taken with at least 350 calories for proper absorption. Depakote level is at the lower end of therapeutic range. patient should follow up with primary psychiatric care provider after discharge to discuss Depakote adjustment if the increase in Lurasidone is ineffective. - Continue Duloxetine 30 mg daily - Continue Bupropion HCL 300 mg daily - continue Divalproex 250 mg + 500 mg daily (adjust according to blood work) - continue trazodone 50 mg HS Patient Instructions: Antibiotic Form, Heart Failure (GEN) Patient Language: Lithuanian Stand Alone Forms: General Discharge Information Follow-up/Referrals: Hema Terrell MD [Physician, Psychiatry] - 1 Week Lalo,Dave Tavares MD [Primary Care Provider] - 2 Weeks Discharge Medications: New lurasidone 60 mg tablet 60 mg PO DAILY Qty: 30 0RF Rx Instructions: must administer with food (at least 350 calories) Continued amlodipine 5 mg tablet 5 mg PO DAILY bupropion HCl 300 mg tablet extended release 24 hr 300 mg PO DAILY cyclobenzaprine 10 mg tablet 10 mg PO DAILY divalproex 250 mg tablet,delayed release (DR/EC) 250 mg PO DAILY divalproex 500 mg tablet,delayed release (DR/EC) 500 mg PO DAILY duloxetine 30 mg capsule,delayed release(DR/EC) 30 mg PO DAILY gabapentin 300 mg capsule 300 mg PO Q8H hydrochlorothiazide 12.5 mg tablet 12.5 mg PO DAILY hydroxyzine HCl 25 mg tablet 25 mg PO BID Rx Instructions: For 14 days 4 days left on RX meloxicam 15 mg tablet 15 mg PO DAILY tamsulosin 0.4 mg capsule 0.4 mg PO HS trazodone 50 mg tablet 50 mg PO HS diclofenac sodium [Voltaren Arthritis Pain] 1 % gel 4 g topical QID Qty: 100 0RF Rx Instructions: apply to single knee, ankle, foot; for foot includes sole/toes/top of foot Discontinued lurasidone 40 mg tablet 40 mg PO DAILY Date of admission: 01/09/25 16:23 Primary Care Provider: AngyDave Admitting Provider: Brooke Dockery Attending physician on admission: Brooke Dockery Condition: Stable Quality VTE Prophylaxis VTE prophylaxis: mechanical ordered Hospitalist MIPS Heart Failure (Exclusion) Patient has history of Heart Transplant or Left Ventricular Assistive Device?: No IF YES, STOP HERE Heart Failure (Qualifier) Patient has current or prior documentation of LVEF less than or equal to 40%, or mod/servere depressed LVSF?: No IF NO, STOP HERE
[2025-01-11 15:09] LABS: Myoglobin, Urine 3 ng/mL (0-13)
== END 2025-01-11 10:17 | disposition home or self-care (01) | DRG 558 ==
LOC: ANHED 01-08 01:28 → ANH3MEDSUR 01-08 02:20
PROVIDERS: General Practice; Nurse Practitioner; Registered Nurse; Student in an Organized Health Care Education/Training Program; Admitting Provider Internal Medicine; Emergency Provider Physician Assistant; PCP Internal Medicine Gastroenterology; Visit Provider Nurse Practitioner
DX: M62.82 Rhabdomyolysis (principal); Z59.00 Homelessness unspecified; F31.89 Other bipolar disorder; R07.89 Other chest pain; F15.10 Other stimulant abuse, uncomplicated; F14.10 Cocaine abuse, uncomplicated; F12.10 Cannabis abuse, uncomplicated; F17.210 Nicotine dependence, cigarettes, uncomplicated; F10.90 Alcohol use, unspecified, uncomplicated; M19.90 Unspecified osteoarthritis, unspecified site; I10 Essential (primary) hypertension; G89.29 Other chronic pain; G24.01 Drug induced subacute dyskinesia; R60.0 Localized edema; Z20.822 Contact with and (suspected) exposure to COVID-19; Z91.51 Personal history of suicidal behavior
CPT/HCPCS: 36415; 70450; 71045; 71275; 80048; 80053; 80164; 80307; 81001; 82077; 82550; 82948; 83690; 83735; 83874; 83880; 84484; 85025; 85027; 85380; 85610; 85730; 87637; 93005; 93306; 93970; 96361; 96372; 96374; 99285; A9270; G0378; J2405; J7030; Q9967